=== PATIENT | male | born 1940 | race Caucasian/White ===

== ENCOUNTER → 2020-05-27 08:49 | Outpatient (CLI) | payer MEDICARE, OTHER, SELFPAY ==
[2020-05-27 10:54] LABS: COVID19 -Nasal RAPID Negative (Negative)
== END ==
PROVIDERS: Visit Provider Nurse Practitioner Family
DX: Z01.812 Encounter for preprocedural laboratory examination (principal); Z20.822 Contact with and (suspected) exposure to COVID-19
CPT/HCPCS: 87635

== ENCOUNTER 2020-05-28 09:58 | Inpatient (IN) | payer MEDICARE, OTHER, SELFPAY ==
[2020-05-25 10:42] VITALS: BMI 44.2
[2020-05-28] VITALS (12 sets, daily range): BP systolic 107–158; BP diastolic 70–89; PULSE 61–79; RESP 11–20; TEMP 35.9–36.9; O2SAT 93–99; BMI 44.2
--- NOTE | 2020-05-28 | DI.RAD.S_ITS ---
PROCEDURE: XR T AND L SPINE 2 TO 3 VIEWS INDICATIONS: T9-L1 tlift TECHNIQUE: 3 views acquired of the thoracolumbar spine. COMPARISON: None. FINDINGS: 3 spot fluoroscopic intraoperative views demonstrating partially visualized paraspinal christian and pedicle screw fixation. Dictated by: Bora Friedman M.D. on 05/28/2020 at 16:21 Approved by: Bora Friedman M.D. on 05/28/2020 at 16:23
[2020-05-28] MEDS: LACTATED RINGERS 1,000 ML 42 ML IV (11:02)
--- NOTE | 2020-05-28 11:15 | PM.PREOP ---
Pre-operative Note COVID-19 COVID-19 status: Negative Result date/Date tested (Pos, Neg/Pending): 05/27/20 Interval Note History & Physical reviewed/Exam performed by Physician: Yes Changes to H&P: No
--- NOTE | 2020-05-28 11:48 | PM.OP.1 ---
Operative Date/Time/Diagnoses Date of procedure: 05/28/20 Time of procedure: 15:50 Pre-op diagnosis: History lumbar fusion Lumbar stenosis with radiculopathy Morbid obesity Post-op diagnosis: same Procedure & Clinicians Procedure: T12-L1 revision laminectomy with microscope Removal of hardware from T12 T9-10, T10-11, T11-12, T12-L1 posterior fusion T9-L1 screws Iliac crest bone graft aspirate Placement of epidural catheter Same procedure as scheduled: Yes Indications: [age] year old male with intractable pain from stenosis. They had failed conservative management and requested operative intervention. Risks and benefits of surgery were discussed and appropriate consents were obtained. Surgeon: Blaze Cobb Rn Document Improvement Specialist: Ayleen Fraser Anesthesia Type: General Operative Notes Findings: None Closure Type: primary Specimen(s): none sent Prosthetic devices, grafts, tissues, transplants, or devices: NuVasive MAS Reline screws Applied: catheter Estimated Blood Loss (mL): 100 Procedure in detail: The patient was brought to the operating room and intubated on the table. A time-out was performed. They were then rolled over to the well-padded L[place]ll table in the prone position. Preoperative antibiotics were given. The back was prepped and draped in the standard sterile fashion. Using fluoroscopy, a 20 cm incision was made on the right from T9 through L2. We used Bovie to come down to and split the fascia and dissect down to his old hardware at L1 and L2. The Z rods and [place] connectors were identified. We unscrewed the set screws and removed the Z rods. The screws at L1 were also removed. Using fluoroscopy and neural monitoring, we then percutaneously placed Jamshidi needles down the right pedicles of T9, T10, T11, and T12. These were switched out to guidewires as well as placing a guidewire at L1. We then tapped and placed our screw shanks at T12 and L1. He had very large pedicles and we placed 6.5 mm diameter screws in the upper levels and upsized the L1 screw to a 7.5 diameter. We opened up the retractor. We dissected out over the posterolateral gutter as well as dissected medially with great care over his previous laminotomy. The bur was used to decorticate the transverse process of T12 as well as the fusion mass at L1. We brought in the microscope. A revision laminotomy was performed from the right at T12-L1. We used a curette to free up the dura from the edges of the bone and gradually dissected through the scar tissue until we could remove more of the hypertrophic facet. We cleared up above and below this with a curette and Kerrisons. We carefully dissected out to the opposite side and undermined this to decompress the remainder of the central canal. At the end we could sweep the ball probe cephalad caudally and across the other side and into the foramen, everything was open. The wound was irrigated. An epidural catheter was prepped with 4 mL of 0.5% Marcaine, 1 mg of Stadol, 100 mcg of fentanyl, and 4 mg of Duramorph. This was advanced 6 cm cephalad underneath the remaining lamina at T12. The retractor was then removed. We then placed the screw heads on top of the screw shanks at T12 and L1. We dissected medially to expose the posterolateral gutter and posterior lamina and decorticated this with the bur to prep for the fusion. A small stab incision was made over the PSIS. We used a Jamshidi needle to aspirate several mL of bone marrow from the pelvis. This was mixed with Osteocel and combined with all of the locally harvested bone graft and placed in the posterolateral gutter for the posterior fusion from T9 through L1. We tapped over the guidewires for the remaining levels then placed our screws at T9, T10, and T11. We measured and placed a christian and locked it down from T9 through L1. The muscle fascia was closed. The epidural catheter was then injected without resistance and the catheter was pulled. We then made a matching 20 cm incision on the left side. We used Bovie to split the fascia and came down to expose the L1 and L2 hardware. The set screws and then to the Z christian was removed. We then removed the L1 screw. We percutaneously placed Jamshidi needles down the T9 through T12 levels and change these out to guidewires. We placed a guidewire in the L1 hole. We tapped and placed our screws with 6.5 mm diameter from T9 through 12 and a 7.5mm diameter at L1. The christian was measured and placed down and moved the set screws were locked. Final x-rays were taken. The wounds were then irrigated. The fascia was closed. Vancomycin powder was placed in the wounds. The superficial and skin were closed. A sterile dressing was placed. The patient was then rolled over extubated and brought to recovery room without complications. Complications: none Post-operative Condition: stable Disposition: PACU Plan for aftercare: Inpatient. Up with physical therapy.
--- NOTE | 2020-05-28 13:09 | SUR.OPER ---
Prone on spine table, head in foam head support, padded chest and pelvic supports, gel pad at knees, lower legs supported by pillows; nipples, genitalia and toes free of pressure, arms secured on foam padded arm boards at <90 degrees abduction. Tape over blanket at thigh secured to table. Gel pads along large abdomen and between heels.
[2020-05-28] MEDS: CEFAZOLIN 2 GM/100 ML FROZ.PIGGY IV ×2 (13:14→20:49)
[2020-05-28] MEDS: THROMBIN (RECOMBINANT) 5,000 UNIT VIAL 5000 UNIT TOP (13:15)
[2020-05-28] MEDS: VANCOMYCIN 1,000 MG VIAL 1000 MG TOP (13:16)
[2020-05-28] MEDS: BUPIVACAINE 0.5% (PF) 4 ML, MORPHINE-PF 4 MG, BUTORPHANOL 1 MG, fentaNYL 100 MCG INJ (13:16)
[2020-05-28] MEDS: SODIUM CHLORIDE 0.9% 1,000 ML, GENTAMICIN 80 MG IRR ×2 (13:17→13:19)
--- NOTE | 2020-05-28 16:46 | SUR.PHASEI ---
Pt arrived to PACU with patent airway, awoke and denied pain despite being asked multiple times, turned to assess dressing x 2 remained c/d/i. Pt transported up to room 202 on 2/l n/c and left with Alexy in stable condition.
--- NOTE | 2020-05-28 16:50 | SUR.PHASEI ---
called, informed of room number.
[2020-05-28] MEDS: LACTATED RINGERS 1,000 ML 125 ML IV (19:06)
[2020-05-28] MEDS: diphenhydrAMINE 25 MG TABLET PO (19:59)
[2020-05-28] MEDS: METOPROLOL IR 25 MG TABLET PO (20:48)
[2020-05-28] MEDS: SENNOSIDES 8.6 MG TABLET 17.2 MG PO (20:49)
[2020-05-28] MEDS: GABAPENTIN 300 MG CAPSULE PO (20:49)
[2020-05-28] MEDS: PANTOPRAZOLE 20 MG TABLET PO (20:49)
[2020-05-28] MEDS: DOCUSATE 100 MG CAPSULE PO (20:49)
[2020-05-28] MEDS: ATORVASTATIN 20 MG TABLET PO (20:49)
[2020-05-28] MEDS: SOTALOL 80 MG TABLET PO (20:49)
[2020-05-28] MEDS: NYSTATIN/TRIAMCIN CREAM 15 GM 1 APPLIC TOP (20:52)
[2020-05-29 01:26] VITALS: BP 128/79; PULSE 88; RESP 16; TEMP 36.8; O2SAT 95
[2020-05-29] MEDS: LACTATED RINGERS 1,000 ML 125 ML IV ×2 (01:35→11:03)
[2020-05-29] MEDS: METOCLOPRAMIDE 10 MG/2 ML INJ IV (01:35)
[2020-05-29] MEDS: hydrOXYzine pamoate 25 MG CAPSULE PO (04:49)
[2020-05-29] MEDS: CEFAZOLIN 2 GM/100 ML FROZ.PIGGY IV (04:49)
[2020-05-29 05:01] VITALS: BP 132/88; PULSE 84; RESP 16; O2SAT 95
--- NOTE | 2020-05-29 05:03 | PC.NURSE ---
Addendum entered by Heide Raphael R.N. 05/29/20 05:12: pt is now resting in bed with CPAP on. Original Note: at begining of shift pt had nausea and some dry heaving, with little to no emesis, pt was given Reglan for nausea. pt was able to sleep most of the night and then complained of nausea again at about 0430. Pt was given Vistaril because it was too early for another dose of Reglan. pt preceded to cough off and on and produced about 50cc of clear emesis.
[2020-05-29 05:55] LABS: Hematocrit 42.2 % (41-53)
--- NOTE | 2020-05-29 07:49 | PM.PNPO.1 ---
Subjective Subjective Date Patient Seen: 05/29/20 Time Patient Seen: 07:50 Interval history: He is doing well. Minimal discomfort. Mostly having problems with nausea. It has been off and on overnight. Exam Vital Signs (past 8 hours): - 05/29/20 01:26 05/29/20 05:01 Temperature 98.2 F Pulse Rate 88 84 Respiratory Rate 16 16 Blood Pressure 128/79 132/88 Pulse Oximetry 95 95 Oxygen Delivery Method Room Air,CPAP Oxygen Flow Rate 0 Const Orientation: alert and oriented x3 Back/Spine/Pelvis Other: Mild drainage on the right side of the dressing. 5/5 motor both lower extremities except 4/5 right hip flexor, overall much improved since preop Objective Labs Result Diagrams: 05/29/20 05:45 Labs: Laboratory Results - last 24 hr 05/29/20 05:45 Hgb 14.0 Hct 42.2 PFSH Medical History (Updated 05/26/20 @ 15:32 by Minda Constantino, RN) Arthritis Atypical chest pain (~2014) AVNRT (AV ciro re-entry tachycardia) BPH (benign prostatic hyperplasia) Chronic anticoagulation Degenerative disc disease Elevated cholesterol Erectile dysfunction Former smoker GERD (gastroesophageal reflux disease) History of tachycardia Hyperlipidemia Hypertension Impairment of balance Lumbar post-laminectomy syndrome Lumbar strain Morbid obesity Obesity Obstructive sleep apnea on CPAP Paroxysmal A-fib Shortness of breath Sinus congestion Spinal stenosis SVT (supraventricular tachycardia) Surgical History (Updated 05/26/20 @ 15:36 by Minda Constantino, RN) H/O cardiac radiofrequency ablation H/O nasal septoplasty (~2012) H/O right knee surgery History of appendectomy History of laminectomy History of lumbar fusion History of total knee arthroplasty S/P epidural steroid injection S/P foot surgery, right Status post cataract extraction of both eyes with insertion of intraocular lens Social History household members: spouse Smoking Status: Former smoker alcohol intake: current Assessment & Plan Post-op Postoperative Procedures: Procedures Operation Date: 05/28/20 12:00 Actual Procedures Side Surgeon p Revision laminectomy T12-L1, instrumented fusion from T9-L1 w. removal of previous screw/christian Blaze Cobb MD He is doing well. Mobilize today with physical therapy. Anticipate discharge home in the next few days. Work on the nausea.
[2020-05-29 08:12] VITALS: BP 153/95; PULSE 79; RESP 26; TEMP 37.2; O2SAT 94
[2020-05-29] MEDS: METOPROLOL IR 25 MG TABLET PO (08:13)
[2020-05-29] MEDS: PANTOPRAZOLE 20 MG TABLET PO (08:13)
[2020-05-29] MEDS: DOCUSATE 100 MG CAPSULE PO (08:13)
[2020-05-29] MEDS: CELECOXIB 200 MG CAPSULE PO (08:13)
--- NOTE | 2020-05-29 08:14 | PC.NURSE ---
Addendum entered by Tsering Donaldson R.N. 05/29/20 15:03: Dressing changed, xeroform with gauze and tegaderm. Voided 125 in urinal. Patient denies pain. IV removed, patient tolerated. Education given regarding prescriptions, follow up appointment, pain and s/s of infection. Patient verbalized understanding. Patient dressed. Awaiting . Report given to oncoming RN. Addendum entered by Tsering Donaldson R.N. 05/29/20 14:00: Patient up to chair without complication. PT and OT have been in to work with patient. Patient denies pain or nausea at this time. Patient verbalizes he'd like to go home this evening if possible. Placed call to surgeons office, left message. Awaiting void. Addendum entered by Tsering Donaldson R.N. 05/29/20 11:39: Patient cleared by PT. Tucker removed, patient tolerated. Urinal bedside. Patient encouraged to drink fluids. is bedside at this time. Notation from earlier, patient refused morning Sotalol, was discontinued by PCP awhile ago. Original Note: Patient resting in bed. A/O x4. Reports nausea, no vomiting, intermittent cough noted. Zofran IV administered. IV fluids running, LR@125. Tucker patent, draining clear yellow urine. Patient denies pain. Denies numbness or tingling in extremities. Pulses equal. Back dsg intact, notable serosang drainage, sanguineous drainage on hip dressing. Patient up with walker, 2 p assist to chair for breakfast. Patient tolerated extremely well, denied dizziness, lightheadedness or SOB. Cpap at bedside for periods of rest. Call light in reach, patient verbalizes understanding to call before going back to bed.
--- NOTE | 2020-05-29 10:32 | PT.IIE ---
Current Diagnoses Morbid (severe) obesity due to excess calories (05/28/20) Obstructive sleep apnea (adult) (pediatric) (05/28/20) Spinal stenosis, lumbar region with neurogenic claudication (05/28/20) Postlaminectomy syndrome, not elsewhere classified (05/28/20) Nasal congestion (05/28/20) Strain of muscle, fascia and tendon of lower back, subsequent encounter (05/28/20) Dependence on other enabling machines and devices (05/28/20) Surgery Performed Operation Date: 05/28/20 12:00 Actual Procedures p Revision laminectomy T12-L1, instrumented fusion from T9-L1 w. removal of previous screw/christian - Blaze Cobb MD Surgical History (Last Updated 05/26/20 @ 15:36 by Minda Constantino, RN) H/O cardiac radiofrequency ablation H/O nasal septoplasty (~2012) H/O right knee surgery History of appendectomy History of laminectomy History of lumbar fusion History of total knee arthroplasty S/P epidural steroid injection S/P foot surgery, right Status post cataract extraction of both eyes with insertion of intraocular lens Medical History (Last Updated 05/26/20 @ 15:32 by Minda Constantino, RN) Arthritis Atypical chest pain (~2014) AVNRT (AV ciro re-entry tachycardia) BPH (benign prostatic hyperplasia) Chronic anticoagulation Degenerative disc disease Elevated cholesterol Erectile dysfunction Former smoker GERD (gastroesophageal reflux disease) History of tachycardia Hyperlipidemia Hypertension Impairment of balance Lumbar post-laminectomy syndrome Lumbar strain Morbid obesity Obesity Obstructive sleep apnea on CPAP Paroxysmal A-fib Shortness of breath Sinus congestion Spinal stenosis SVT (supraventricular tachycardia) Physical Therapy Inpatient Evaluation/Re-Eval M1 PT/OT-IP Prior Functional Status Start: 05/29/20 08:26 Freq: NEEDED Status: Active Protocol: Document 05/29/20 10:17 (Rec: 05/29/20 10:31 [id number]) Medical Review Prior Functional Status Medical History Reviewed Yes Diet/Fluid Consistency Regular Communication no deficits noted. able to make needs known Mobility and Gait independent for all mobility without AD. Has difficulty lifting his legs up to get in/ out of the car d/t thigh pain. Activities of Daily Living and IADL's independent for ADLs and IADLs without AD. able to drive. Prior Functional Level (Other details) had 2 back surgeries in 2009 and 2014 Social History Household Members spouse Living Arrangements House Number of Floors (Floors) One Floor Number of Stairs To Enter/Railing? no ANEL, 1 ANEL from garage entrance Home Environment High Toilet,Walk in Shower,Tub /Shower Home Equipment Front Wheel Walker,Straight Cane,Crutches Employment Status Retired Additional Social History Comment Pt lives with his in [facility]. is active and able to assist as needed. M2 PT-IP Current Condition Start: 05/29/20 08:26 Freq: NEEDED Status: Active Protocol: Document 05/29/20 10:17 (Rec: 05/29/20 10:31 [email or web address]) Physical Therapy Current Condition Current Condition Evaluation Date 05/29/20 Treatment Diagnosis Revision Laminectomy T12-L1, fusion from T9-L1 Onset Date 05/28/20 Precautions Lumbar Precautions Log Roll,No Twisting,Limit Bending,Lifting Restriction of 10 lbs,Gait Belt above Incisional Area Weight Bearing Status Weight Bearing Status Full Weight Bearing M3 PT-IP Subjective Start: 05/29/20 08:26 Freq: NEEDED Status: Active Protocol: Document 05/29/20 10:17 (Rec: 05/29/20 10:31 [email or web address]) Subjective Physical Therapy Visit Type Type Initial Evaluation Visit Start Time 09:05 Visit Stop Time 09:33 Total Visit Minutes 28 Number of CALENDER MACHINE OPERATOR Visits 0 Physical Therapy Visit Comments Patient Comments Im doing very good so far Patient Goals To be able to ride his motorcycle again. Therapy Pain Assessment Pain When Pain Assessed During Mobility Pain Present Pain Present Denied Pain M4 PT-IP Mobility and Gait Start: 05/29/20 08:26 Freq: NEEDED Status: Active Protocol: Document 05/29/20 10:17 (Rec: 05/29/20 10:31 [email or web address]) PT-Bed Mobility Assessment Rolling Type of Rolling Roll to Left Level of Assist Standby Assistance Supine to Sit Supine to Sit Minimal Assistance,Bedrails Sit to Supine Sit to Supine Standby Assistance,Bedrails Scooting Scooting to Edge of Bed Standby Assistance PT-Transfer Assessment Sit to and From Stand Sit to and from Stand Standby Assistance,Use of Upper Extremities Equipment Transfer Assistive Device Gait Belt,Front Wheeled Walker Orthotic/Prosthetic Devices or Brace: No Transfers Transfer Destination Bed,Chair Transfer Technique Stand Step Pivot Transfer Ability Level of Assist Standby Assistance,Use of Upper Extremities Comments Mobility Comments Pt was in chair upon PT arrival. Ax O x 4. BP 140/76 SpO2 92 %. Educated pt on postop precautions and he was able to recall all of them during the entire session. Pt initially stood up from bedside chair by pushing off from FWW. He then completed marching in place who stated he was not able to perform hip flexion before d/t pain. He then amb with FWW SBA in hallway for approx 120 ft. Pt appeared to be SOB easily d/t preexisted medical conditions. Pt took one 1 min standing break in the middle of the his walk. He then completed the 2nd half and returned to his room and sat at L EOB. Pt was able to get from sitting position to SL with assistance from L bed rail followed by log roll to center of the bed. He then completed log roll to his L side but needed min SENIOR DATABASE ADMINISTRATOR to pull him up back to seated position. He stood up after with FWW and transferred himself to bedside chair safely. He sat there comfrotably and denied discomfort besides SOB. BP at 157/78 SpO2 92%. Call light placed within reach. Gait Assessment Gait Gait Assistance Required: Standby Assistance Distance (Feet) 120 Able to Maintain Weight Bearing Status Yes During Gait Assistive Devices Assistive Device Gait Belt,Front Wheeled Walker Orthotic/Prosthetic Devices or Brace: No Gait Deviations General Gait Pattern Decreased Stride Length, Decreased Feet Clearance Factors Limiting Gait Function Factors Limiting Gait Function Decreased Activity Tolerance, Decreased Strength,Limited Range of Motion,Respiratory Distress Comments Gait Comments see mobility comments. Stair Climbing Assessment Comments Stair Climbing Comments no stairs PT-Balance Assessment Sitting Balance and Reactions Static Sitting Balance Ability Normal Dynamic Sitting Balance Ability Normal Standing Balance and Reactions Static Standing Balance Ability Normal Dynamic Standing Balance Ability Good Device Used FWW M5 PT-IP Objective Assessments Start: 05/29/20 08:26 Freq: NEEDED Status: Active Protocol: Document 05/29/20 10:17 (Rec: 05/29/20 10:31 [email or web address]) Orientation Orientation/Cognition Level of Alertness Alert Orientation Name,Age,Birthday,Month,Date, Year,Day of Week,Place, Situation Language Function Ability No Deficits Noted,Hard of Hearing Safety Awareness Understands Safety Issues Memory Description No Deficits Noted Gross Range of Motion Upper Extremity ROM Assessment Within Functional Limits Lower Extremity ROM Assessment Within Functional Limits Strength Upper Extremity Strength Assessment Within Functional Limits Lower Extremity Strength Assessment Within Functional Limits Hip 4+/5 Coordination Assessment Gross Coordination Gross Coordination WNL Sensation Assessment Sensation Gross Sensation WNL Comments Sensation Comments full sensation noted. no deficits. M6 PT-IP Treatment Start: 05/29/20 08:26 Freq: NEEDED Status: Active Protocol: Document 05/29/20 10:17 (Rec: 05/29/20 10:31 [email or web address]) Physical Therapy Treatment Education Education Provided Precautions,Weight Bearing Status,Post-Op Packet,Safety M7 PT-IP Assessment and Plan Start: 05/29/20 08:26 Freq: NEEDED Status: Active Protocol: Document 05/29/20 10:17 (Rec: 05/29/20 10:31 [email or web address]) PT Summary Assessment and Plan Potential Rehabilitation Potential Excellent Status of Condition at Evaluation Stable Summary Impairments Pain,ROM,Strength,Balance,Bed Mobility,Transfers,Gait, Activity Tolerance Progress Towards Goals Safe For Discharge Assessment Summary pt is a 79 yo male s/p POD1 Revision laminectomy T12-L1, instrumented fusion from T9-L1 w. removal of previous screw/ christian. PLOF= pt was independent for all mobility except with difficulty lifting his legs in /out of his truck d/t anterior thigh pain. CLOF= pt recovers very well and SBA with all mobility with FWW. He did need min SENIOR DATABASE ADMINISTRATOR for sidelying to sit but pt has a firmer bed at home with assistance as needed. Pt is safe to d/c home with assistance at this point. Frequency of Treatment Frequency Of Treatment Discharge Recommendations To Nursing Amount of Assist Needed Standby Assistance Discharge Recommendations PT Discharge Recommendations Home with Assistance Transportation Needs at Discharge Private Vehicle
[2020-05-29 10:53] VITALS: PULSE 75; RESP 16; O2SAT 95
--- NOTE | 2020-05-29 12:18 | OT.IP.EVAL ---
Current Diagnoses Morbid (severe) obesity due to excess calories (05/28/20) Obstructive sleep apnea (adult) (pediatric) (05/28/20) Spinal stenosis, lumbar region with neurogenic claudication (05/28/20) Postlaminectomy syndrome, not elsewhere classified (05/28/20) Nasal congestion (05/28/20) Strain of muscle, fascia and tendon of lower back, subsequent encounter (05/28/20) Dependence on other enabling machines and devices (05/28/20) Surgery Performed Operation Date: 05/28/20 12:00 Actual Procedures p Revision laminectomy T12-L1, instrumented fusion from T9-L1 w. removal of previous screw/christian - Blaze Cobb MD Past Medical History (Last Updated 05/26/20 @ 15:32 by Minda Constantino, RN) Arthritis Atypical chest pain (~2014) AVNRT (AV ciro re-entry tachycardia) BPH (benign prostatic hyperplasia) Chronic anticoagulation Degenerative disc disease Elevated cholesterol Erectile dysfunction Former smoker GERD (gastroesophageal reflux disease) History of tachycardia Hyperlipidemia Hypertension Impairment of balance Lumbar post-laminectomy syndrome Lumbar strain Morbid obesity Obesity Obstructive sleep apnea on CPAP Paroxysmal A-fib Shortness of breath Sinus congestion Spinal stenosis SVT (supraventricular tachycardia) Surgical History (Last Updated 05/26/20 @ 15:36 by Minda Constantino, RN) H/O cardiac radiofrequency ablation H/O nasal septoplasty (~2012) H/O right knee surgery History of appendectomy History of laminectomy History of lumbar fusion History of total knee arthroplasty S/P epidural steroid injection S/P foot surgery, right Status post cataract extraction of both eyes with insertion of intraocular lens Occupational Therapy Inpatient Evaluation/Re-Eval M1 PT/OT-IP Prior Functional Status Start: 05/29/20 08:26 Freq: NEEDED Status: Active Protocol: Document 05/29/20 15:04 CGR (Rec: 05/29/20 15:21 CGR [id number]) Medical Review Prior Functional Status Medical History Reviewed Yes Diet/Fluid Consistency Regular Communication no deficits noted. able to make needs known Mobility and Gait independent for all mobility without AD. Has difficulty lifting his legs up to get in/ out of the car d/t thigh pain. Activities of Daily Living and IADL's independent for ADLs and IADLs without AD. able to drive. Prior Functional Level (Other details) had 2 back surgeries in 2009 and 2014 Social History Household Members spouse Living Arrangements House Number of Floors (Floors) One Floor Number of Stairs To Enter/Railing? 1 step to enter from the garage, pt has no steps from the front door Home Environment High Toilet,Walk in Shower,Tub /Shower Home Equipment Front Wheel Walker,Straight Cane,Grab Bars In Shower Employment Status Retired M2 OT-IP Current Condition Start: 05/29/20 15:03 Freq: Status: Active Protocol: Document 05/29/20 15:04 CGR (Rec: 05/29/20 15:21 CGR [id number]) Occupational Therapy Current Condition Current Condition Evaluation Date 05/29/20 Treatment Diagnosis T9-L1 Lami and fusion Diagnosis Onset Date 05/28/20 Post Operative Precautions Lumbar Precautions Log Roll,No Twisting,Limit Bending,Lifting Restriction of 10 lbs,Gait Belt above Incisional Area M3 OT- IP Subjective and Pain Start: 05/29/20 15:03 Freq: Status: Active Protocol: Document 05/29/20 15:04 CGR (Rec: 05/29/20 15:21 CGR [id number]) OT- Subjective Occupational Therapy Visit Type Type Initial Evaluation Visit Start Time 11:43 Visit Stop Time 12:18 Total Visit Minutes 35 Notes Pt's present throughout session. OT Pain Assessment Pain When Pain Assessed At Rest Pain Present Pain Present Denied Pain M4 OT- IP ADL's Start: 05/29/20 15:03 Freq: Status: Active Protocol: Document 05/29/20 15:04 CGR (Rec: 05/29/20 15:21 CGR [id number]) OT FZM-Naiz-Ueacvag General Evaluation Self-Feeding Ability Independent OT ADL-Grooming General Evaluation Grooming Ability Independent Areas Needing Assistance Face Washing Comments OT Grooming Comments standing at sink OT ADL-Oral Care General Eval Oral Care Ability Independent Areas of Assistance Brushing Teeth Comments Oral Care Comments standing at sink OT ADL-Dressing Comments OT Dressing Comments Not performed but pt states the he used a sock aide and vegetable preparer for dressing at baseline from past sx. OT ADL-Toileting General Evaluation Toileting Ability Independent OT ADL-Bathing Comments OT Bathing Comments not performed M5 OT- IP IADL's Start: 05/29/20 15:03 Freq: Status: Active Protocol: Document 05/29/20 15:04 CGR (Rec: 05/29/20 15:21 R [id number]) OT-Instrumental Activities of Daily Living Deficits IADL Deficits Identified No Deficits Home Safety Awareness Awareness of Need for Assistance at Home Good Awareness Ability to Problem Solve Emergency Able to Problem Solve Situations Medication Management Medication Management No Deficits Identified Money Management Money Management No Deficits Identified Meal Preparation Meal Preparation No Deficits Identified Adjunct Professor Of Voice Adjunct Professor Of Voice No Deficits Identified Driving Driving Caregiver Provides Assist M6 OT- IP Functional Cognition Start: 05/29/20 15:03 Freq: Status: Active Protocol: Document 05/29/20 15:04 CGR (Rec: 05/29/20 15:21 R [id number]) Cognitive Factors Limiting Selfcare Function Cognitive Ability Level of Alertness Alert Patient Orientation Name,Age,Birthday,Month,Date, Year,Day of Week,Place, Situation Attention Span Ability Capable of Focused Attention, Capable of Sustained Attention Ability to Follow Commands Able to Follow Multi-Step Commands Memory Description No Deficits Noted Safety Awareness No Deficits Noted Problem Solving Ability No deficits Noted OT- Vision and Hearing OT- Hearing Assessment OT- Hearing Assessment Hearing Impaired OT- Vision Assessment Visual Acuity Glasses For Reading Visual Attentiveness WFL Occular Pursuits WFL Visual Convergence WFL M7 OT- IP Mobility and Balance Start: 05/29/20 15:03 Freq: Status: Active Protocol: Document 05/29/20 15:04 CGR (Rec: 05/29/20 15:21 R [id number]) OT-Transfer Assessment Sit to and From Stand Sit to and from Stand Standby Assistance Transfers Transfer Ability Standby Assistance Technique Transfer Destination Chair,Toilet Transfer Technique Stand Step Pivot Devices Transfer Assistive Devices Gait Belt,Front Wheeled Walker Comments Mobility Comments mobility started with 2WW but finished without walker. OT- Gait Assessment Gait Gait Assistance Required: Standby Assistance Assistive Devices Assistive Device Gait Belt OT- Balance Assessment Sitting Balance and Reactions Static Sitting Balance Ability Normal Dynamic Sitting Balance Ability Good M8 OT- IP Objective Assessments Start: 05/29/20 15:03 Freq: Status: Active Protocol: Document 05/29/20 15:04 CGR (Rec: 05/29/20 15:21 R [id number]) OT Gross Range of Motion Upper Extremity Range of Motion Assessment Within Functional Limits OT Strength Upper Extremity Strength Assessment Within Functional Limits OT- Coordination Assessment Upper Extremity Finger to Nose Test Within Functional Limits Finger Tapping Test Within Functional Limits OT-Muscle Tone Assessment Muscle Tone WNL Yes OT Sensation Assessment Edema Edema Absent M9 OT- IP Assessment and Plan Start: 05/29/20 15:03 Freq: Status: Active Protocol: Document 05/29/20 15:04 CGR (Rec: 05/29/20 15:21 CGR [id number]) OT Summary Assessment and Plan Potential Rehabilitation Potential Excellent Analytic Complexity at Evaluation Low Summary OT Impairments Functional Mobility,Activity Tolerance Progress Towards Goals Safe For Discharge,Goals Met Assessment Summary Pt is at or close to his baseline s/p T9-L1 lami and fusion. No further OT needs at this time. Frequency of Treatment Frequency Of Treatment Discharge Discharge Recommendations OT Discharge Recommendations Home with Assistance Transportation Needs at Discharge Private Vehicle
[2020-05-29 13:23] VITALS: BP 136/74; PULSE 79; RESP 26; O2SAT 94
--- NOTE | 2020-05-29 13:32 | CM.DANOTE ---
Discharge Planning/Care Management DCP: assessment: Case received, EMR reviewed. Pt is a 79 year old male who admitted 05/28 for a scheduled spinal surgery. Surgeon: Dr. Cobb. Payer : Medicare and [employer]. Admission status: INPT: confirmed by UR RN Deejay. Pt has history of prior spinal surgeries. Dr. Cobb states pt is expected to need a few day in the hospital as the surgery was made more complex by pt's morbid obesity (330 lbs) . PT has worked with pt today. OT is pending. Will be checking in with pt and follow for d/c issues and options as need is identified. CM Discharge Assessment Start: 05/29/20 13:30 Freq: Status: Active Protocol: Document 05/29/20 13:31 ITV (Rec: 05/29/20 13:32 IT [id number]) Discharge Planning Assessment Advance Directives? No History Provided By Medical Record Has Patient been admitted in last 30 No days? Prior Living Arrangements House Household Members spouse Type of transportation used prior to Drives own vehicle admit Independent with ADL's Yes Is patient alert and oriented? Yes DME Already Rented / Owned FWW / Walker,Cane,Crutches Review Status In Process Pre-Anesthesia Assessment Start: 05/25/20 10:42 Freq: Status: Complete Protocol: Document 05/25/20 10:42 [facility] (Rec: 05/25/20 11:23 [facility] [id number]) Pre-Anesthesia Assessment Preferred Name [employer] Patient Information Reviewed Via Chart Review,Phone Assessment Assessment Completed With Patient H&P Completed Within 30 Days Yes Diagnostic Results BMP/CMP,CBC,EKG,Other Comment A1c,covid Primary Care Provider Lotus Rajan Medical Clearance Received Yes Seen Specialist in Last 12 Months Yes Specialist Seen Rocket Motor Tester,Orthopedist Comment Shakeel Primary Language Slovak Federal Java Developer Required No Height 184.15 cm Weight 150.139 kg Body Mass Index (BMI) 44.2 Hearing Ability Use of Hearing Aid Visual Impairment No Limitations Dentition Type Teeth, Natural Present Barriers to Learning Auditory,Visual Other Aids No Hx Anesthesia Reactions No Hx Family Anesthesia Reaction No Hx Malignant Hyperthermia No Hx Blood Transfusions No Hx Blood Transfusion Reaction No Anesthesia Review Requested No Coffee Break Attendant No alcohol intake current alcohol intake frequency 0-2 drinks per day Smoking Status Former smoker Tobacco type cigarettes,pipe,cigars Has it been 2 weeks or less since No patient quit smoking how long ago did patient quit smoking 1980s Substance Use Type does not use Pain Present Pain Reported Comment back and leg pain Musculoskeletal Symptoms Back Pain,Muscle Weakness, Numbness,Radiating Pain into Limb History of Falling (Recent or History of No ) Patient is completely paralyzed or No completely immobile Ambulatory Aid None/bed rest/nurse assist Gait/Transferring Normal/bedrest/immobile,Weak Mental Status Oriented to own ability Comment limited walking, hunched over Is patient on oxygen? No Does patient have CHOW/SOB Yes Hx Sleep Apnea Yes CPAP/BIPAP use prescribed and used routinely Will Bring CPAP/BIPAP DOS Yes Currently Taking a Beta Andrew No Can You Climb a Flight of Stairs Without No SOB Hx Chest Pain No Hx SOB Yes Hx Syncope or Dizziness No Anti-Coagulant Therapy Yes: Yuliana Has a Rocket Motor Tester Yes: Shakeel Cardiac Testing Yes: Zio 08/11, Echo 07/11, Albation 10/11, Hx Pacemaker/ICD No Cardiac Clearance Received Not Applicable Comment EF 65% Diet Type At Home Regular dysphagia No Urinary Catheter Present No Hx Urinary Self Catheterization No Diabetes No Hx Drug Resistant Organism No Presence of External or Internal Medical Yes: Antoni IOLs, R TKA, back Devices Have you had any close contact with No someone diagnosed with COVID-19? Are you experiencing any of these Weakness symptoms? Evaluation/Screening for possible COVID- Yes 19 infection completed? Comment Weakness @ baseline Marital Status Lives With spouse Prior Living Arrangements House Number of Floors (Floors) One Floor Number of Stairs To Enter/Railing? no stairs Support System Spouse Does the Patient Have Assistance After Yes Surgery Patient Discharge Plan Description Return Home Feels Safe in Current Environment Yes Been Physically Hurt or Threatened By a No Person in Current Environment Do you have thoughts of harming yourself None or others? Are you currently considering suicide? No Do you have a plan to hurt yourself or No Plan others? Do You Have Any Spiritual Beliefs That No May Affect Your HC Choices? Do You Have Any Cultural Practices That No May Affect Your HC Choices? Who Can We Speak to About Patient's Care Friends & Family Identifying Code for Release of Patient Declined Information Health Care Proxy/Next of Kin Samantha Cade Health Care Proxy Emergency Contact Name - America Cade Emergency Contact Advance Directives? No Power of Mill Representative No PAC Instructions Assistance for 24 hours post- op,Bring CPAP/BIPAP,Do not shave/clip surgical site, Durable medical equipment, Medications to take/avoid, Nasal antibiotic,No ETOH/ petroleum product on skin DOS, NPO,Post-op transportation,Pre -op antibiotic,Pre-surgical wash,Sensory aids,Sturdy shoes /comfortable clothes,Do not bring valuables and remove jewelry
== END 2020-05-29 15:31 | disposition home or self-care (01) | DRG 460 ==
PROVIDERS: Admitting Provider Orthopaedic Surgery; Referring Provider Orthopaedic Surgery; Visit Provider Orthopaedic Surgery
PROC: 0RG7071 Fusion of 2 to 7 Thoracic Vertebral Joints with Autologous Tissue Substitute, Posterior Approach, Posterior Column, Open Approach (ICD-10-PCS; principal; 2020-05-28 12:00)
DX: M48.062 Spinal stenosis, lumbar region with neurogenic claudication (principal); Z68.41 Body mass index [BMI] 40.0-44.9, adult; M96.1 Postlaminectomy syndrome, not elsewhere classified; E66.01 Morbid (severe) obesity due to excess calories; I10 Essential (primary) hypertension; E78.5 Hyperlipidemia, unspecified; K21.9 Gastro-esophageal reflux disease without esophagitis; G47.33 Obstructive sleep apnea (adult) (pediatric); I48.0 Paroxysmal atrial fibrillation; Z79.01 Long term (current) use of anticoagulants; Z87.891 Personal history of nicotine dependence; Z20.822 Contact with and (suspected) exposure to COVID-19
CPT/HCPCS: 36415; 72082; 76000; 82962; 85014; 85018; 87635; 94760; 97161; 97165; 97535; C1776; C9803; J0595; J0690; J1100; J2250; J2274; J2405; J2704; J2765; J3010

== ENCOUNTER 2022-04-13 21:06 | Inpatient (IN) | payer MEDICARE, OTHER, SELFPAY ==
[2020-05-28 16:46] VITALS: BMI 44.2
[2022-04-13] VITALS (8 sets, daily range): BP systolic 118–154; BP diastolic 58–81; PULSE 85–97; RESP 20–26; TEMP 35.8; O2SAT 92–100; BMI 43.6
--- NOTE | 2022-04-13 21:14 | DI.RAD.S_ITS ---
PROCEDURE: XR CHEST 1V INDICATIONS: chest pain TECHNIQUE: One view of the chest was acquired. COMPARISON: None. FINDINGS: Surgical changes and devices: None. Lungs and pleura: Evaluation is limited by lordotic projection. There are low lung volumes with bibasilar medial opacities consistent with consolidation or atelectasis. The lateral costophrenic angles are indistinct suggestive of small pleural effusions. Mediastinum: Heart size appears enlarged. Bones and chest wall: No suspicious bony lesions. Overlying soft tissues appear unremarkable. IMPRESSION: 1. Limited study due to lordotic projection and low lung volumes. 2. Medial bibasilar atelectasis or consolidation. 3. Suspected small pleural effusions. Dictated by: Deejay Diaz M.D. on 04/13/2022 at 22:27 Approved by: Deejay Diaz M.D. on 04/13/2022 at 22:31
[2022-04-13 21:32] LABS: INR 1.8 (0.9-1.3); Prothrombin Time 20.7 SECONDS (10.1-12.7)
[2022-04-13 21:34] LABS: PTT Partial Thromboplastin Tim 36 SECONDS (26-36)
[2022-04-13 21:36] LABS: Add Manual Diff / Slide Review NO; Basophils Absolute Auto 100 /uL (0-100); Basophils Percent Auto 0.8 % (0-2); Eosinophils Absolute Auto 100 /uL (0-450); Eosinophils Percent Auto 0.8 % (2-4); Hematocrit 38.4 % (41-53); Hemoglobin 12.7 g/dL (13.5-17.5); Lymphocytes Absolute Auto 1800 /uL (1100-4500); Lymphocytes Percent Auto 15.6 % (25-40); Mean Corpuscular Hemoglobin 29.4 PG (26-34); Mean Corpuscular Volume 89.1 fL (80-100); Monocytes Absolute Auto 600 /uL (0-900); Monocytes Percent Auto 4.9 % (3-14); Neutrophils Absolute Auto 9000 /uL (1500-7000); Neutrophils Percent Auto 77.9 % (50-75); Platelet Count 366 X10^3/uL (150-400); Red Blood Cell Count 4.31 X10^6/uL (4.5-5.9); Red Cell Distribution Width 14.8 % (11.6-14.8); White Blood Cell Count 11.6 X10^3/uL (4.5-11.0)
[2022-04-13 21:37] LABS: Alanine Aminotransferase 69 IU/L (<50); Albumin 3.3 g/dL (3.5-5.0); Alkaline Phosphatase 276 U/L (38-126); Aspartate Aminotransferase 147 IU/L (17-59); BUN Creatinine Ratio 10.9 (6-22); Bilirubin Total 0.6 mg/dL (0.2-1.3); Blood Urea Nitrogen 15 mg/dL (9-20); Calcium 8.6 mg/dL (8.4-10.2); Carbon Dioxide 29 mmol/L (22-32); Chloride 100 mmol/L (98-107); Creatine Kinase 25 U/L (55-170); Estimated Glomerular Filt Rate 51 mL/min (>60); Globulin 3.3 g/dL (1.7-4.1); Glucose 157 mg/dL (80-110); HEMOLYSIS < 15 (0-50); Magnesium 1.8 mg/dL (1.6-2.3); Potassium 4.2 mmol/L (3.4-5.1); Sodium 138 mmol/L (137-145); Total Protein 6.6 g/dL (6.3-8.2)
[2022-04-13 21:42] LABS: COVID19 -Nasal RAPID Negative (Negative)
--- NOTE | 2022-04-13 21:43 | ED.CHESTPAIN ---
HPI - Chest Pain General Chief Complaint: Chest Pain Stated Complaint: SOB/ABD. PAIN Time Seen by Provider: 04/13/22 21:37 Source: patient Mode of arrival: Ambulatory Limitations: no limitations History of Present Illness HPI narrative: Patient is an 81-year-old male who is here for evaluation of several hours of acute sudden onset of epigastric abdominal discomfort associated with nausea and vomiting and some shortness of breath. He states the beginning of the month he was seen at outside facility where he was evaluated for gallbladder pathology. He was told that he needed to have his gallbladder removed. He is waiting for insurance/referrals to go through in order to see General surgery. This evening he was eating ice cream. He would a sudden onset of the same pain that he had earlier this month. Has also had vomiting. No diarrhea. No chest pain. No urinary symptoms. Had his appendix out back in the early 60s otherwise no other abdominal pathology. 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 Related Data Home Medications Medication Instructions Recorded Confirmed atorvastatin 20 mg tablet 20 mg PO BEDTIME 05/25/20 05/25/20 meloxicam 15 mg tablet 15 mg PO DAILY PRN Pain 05/25/20 05/25/20 metoprolol tartrate 25 mg tablet 25 mg PO BID 05/25/20 05/25/20 omeprazole 20 mg tablet,delayed 20 mg PO BID 05/25/20 05/25/20 release rivaroxaban 20 mg tablet (Xarelto) 20 mg PO QPM 05/25/20 05/25/20 losartan 05/26/20 magnesium 200 mg tablet 05/26/20 nystatin-triamcinolone 100,000 1 applic topical BID 05/26/20 05/26/20 unit/gram-0.1 % topical ointment sotalol 80 mg tablet 80 mg PO BID 05/26/20 05/26/20 Previous Rx's Medication Instructions Recorded bisacodyl 10 mg rectal suppository [address] PRN PRN Constipation #5 ea 05/29/20 docusate sodium 100 mg capsule 100 mg PO BID PRN constipation #40 05/29/20 (DOK) caps hydrocodone 5 mg-acetaminophen 325 1 tab PO Q4HR PRN Pain, Moderate 05/29/20 mg tablet (4-6) #20 tabs Allergies Allergy/AdvReac Type Severity Reaction Status Date / Time tramadol Allergy Unknown Doesn't Verified 04/13/22 21:11 recall dronedarone AdvReac Mild Diarrhea Verified 04/13/22 21:11 Review of Systems Constitutional Constitutional: Reports system reviewed and no additional complaints, except as documented ENT Ears, Nose, Mouth, and Throat: Reports system reviewed and no additional complaints, except as documented Cardiovascular Cardiovascular: Reports system reviewed and no additional complaints, except as documented Respiratory Respiratory: Reports system reviewed and no additional complaints, except as documented Gastrointestinal Gastrointestinal: Reports system reviewed and no additional complaints, except as documented Integumentary/Breasts Skin/Breast: Reports system reviewed and no additional complaints, except as documented Hematologic/Lymphatic On Anticoagulants: No Patient History Medical History Anticoagulated Arthritis Atypical chest pain (~2014) AVNRT (AV ciro re-entry tachycardia) BPH (benign prostatic hyperplasia) Chronic anticoagulation Degenerative disc disease Elevated cholesterol Erectile dysfunction Former smoker Gallstone pancreatitis GERD (gastroesophageal reflux disease) History of tachycardia Hyperlipidemia Hypertension Impairment of balance Lumbar post-laminectomy syndrome Lumbar strain Morbid obesity Obesity Obstructive sleep apnea on CPAP Paroxysmal A-fib Shortness of breath Sinus congestion Spinal stenosis SVT (supraventricular tachycardia) Surgical History (Updated 05/26/20 @ 15:36 by Minda Constantino RN) H/O cardiac radiofrequency ablation H/O nasal septoplasty (~2012) H/O right knee surgery History of appendectomy History of laminectomy History of lumbar fusion History of total knee arthroplasty S/P epidural steroid injection S/P foot surgery, right Status post cataract extraction of both eyes with insertion of intraocular lens Social History household members: spouse Smoking Status: Former smoker alcohol intake: current Smoking Status: Former smoker alcohol intake frequency: 0-2 drinks per day Substance Use Type: does not use Exam Initial Vital Signs Initial Vital Signs: Vital Signs Temperature 96.4 F L 04/13/22 21:11 Pulse Rate 97 H 04/13/22 21:11 Respiratory Rate 20 04/13/22 21:11 Blood Pressure 118/58 L 04/13/22 21:11 Pulse Oximetry 100 04/13/22 21:11 Oxygen Delivery Method 04/13/22 21:11 HENMT Head: normal to inspection and normocephalic Resp Effort & Inspection: normal respiratory effort Auscultation: clear to auscultation bilaterally Cardio Rate: regular rate Rhythm: regular rhythm GI Inspection: normal to inspection Palpation: soft, No firm and tender Skin General: no rashes or lesions noted Neuro General: patient alert, patient awake and moves all extremities Speech: speech normal Extrem General: normal to inspection and capillary refill normal Psych Appearance: grossly normal and well kempt Course Orders Ordered: ED Orders 04/13/22 21:14 XR chest 1V Stat EKG-12 Lead Stat 04/13/22 21:16 BNP [NT-proBNP (BNP-Adult 18+)] Stat COVID19 -Nasal RAPID/Pre-Proc Stat Complete Blood Count AUTO DIFF Stat Comprehensive Metabolic Panel Stat Lipase Stat Magnesium Stat Partial Thromboplastin Time Stat Prothrombin Time INR Stat Troponin & CK Cardiac Panel Stat 04/13/22 21:44 US abdomen limited Stat 04/14/22 00:22 Consult to General Surgery Stat Sodium Chloride (Normal Saline 0.9%) 1,000 mls @ 150 mls/hr IV CONT RAUL Discontinued Medications Piperacillin Sod/Tazobactam (Sod 4.5 gm/ Sodium Chloride) 100 mls @ 200 mls/hr IV NOW ONE Stop: 04/14/22 00:32 Ketorolac Tromethamine (Ketorolac 30 Mg/Ml Vial) 30 mg IV NOW ONE Stop: 04/13/22 22:00 Last Admin: 04/13/22 22:14 Dose: 30 mg Documented By: COSMO Morphine Sulfate (Morphine 4 Mg/Ml Inj) 4 mg IV NOW ONE Stop: 04/13/22 21:44 Last Admin: 04/13/22 21:50 Dose: 4 mg Documented By: DEJAN Ondansetron HCl (Ondansetron 4 Mg/2 Ml Inj) 4 mg IV NOW ONE Stop: 04/13/22 21:44 Last Admin: 04/13/22 21:48 Dose: 4 mg Documented By: DEJAN Vital Signs Vital signs: Vital Signs - 8 hr 04/13/22 21:11 04/13/22 22:21 04/13/22 22:22 Temperature 96.4 F L Pulse Rate 97 H 88 85 Respiratory Rate 20 24 22 Blood Pressure 118/58 L Pulse Oximetry 100 98 95 Oxygen Delivery Method Room Air 04/13/22 22:22 04/13/22 22:30 04/13/22 22:30 Temperature Pulse Rate 88 Respiratory Rate 23 Blood Pressure 154/81 H 124/60 Pulse Oximetry 96 Oxygen Delivery Method 04/13/22 23:00 04/13/22 23:00 04/13/22 23:18 Temperature Pulse Rate 96 H Respiratory Rate 26 H Blood Pressure 154/70 H 142/72 H Pulse Oximetry 92 Oxygen Delivery Method 04/13/22 23:18 04/13/22 23:29 04/13/22 23:30 Temperature Pulse Rate 93 H 93 H Respiratory Rate 25 H 25 H Blood Pressure 138/70 Pulse Oximetry 98 93 Oxygen Delivery Method MDM - Chest Pain Lab Data Result diagrams: 04/13/22 21:16 04/13/22 21:16 Labs: Lab Results 04/13/22 04/13/22 04/13/22 Range/Units 21:16 21:16 21:16 WBC 11.6 H (4.5-11.0) X10^3/uL RBC 4.31 L (4.5-5.9) X10^6/uL Hgb 12.7 L (13.5-17.5) g/dL Hct 38.4 L (41-53) % MCV 89.1 (80-100) fL MCH 29.4 (26-34) PG MCHC 33.0 (30-36) % RDW 14.8 (11.6-14.8) % Plt Count 366 (150-400) X10^3/uL Neut % (Auto) 77.9 H (50-75) % Lymph % (Auto) 15.6 L (25-40) % [place] % (Auto) 4.9 (3-14) % Eos % (Auto) 0.8 L (2-4) % Baso % (Auto) 0.8 (0-2) % Neut # (Auto) 9000 H (7495-4483) /uL Lymph # (Auto) 1800 (8352-2659) /uL [place] # (Auto) 600 (0-900) /uL Eos # (Auto) 100 (0-450) /uL Baso # (Auto) 100 (0-100) /uL PT 20.7 H (10.1-12.7) SECONDS INR 1.8 H (0.9-1.3) APTT 36 (26-36) SECONDS Sodium 138 (137-145) mmol/L Potassium 4.2 (3.4-5.1) mmol/L Chloride 100 (98-107) mmol/L Carbon Dioxide 29 (22-32) mmol/L BUN 15 (9-20) mg/dL Creatinine 1.38 H (0.66-1.25) mg/dL Estimated GFR 51 L (>60) mL/min BUN/Creatinine Ratio 10.9 (6-22) Glucose 157 H (80-110) mg/dL Calcium 8.6 (8.4-10.2) mg/dL Magnesium 1.8 (1.6-2.3) mg/dL Total Bilirubin 0.6 (0.2-1.3) mg/dL AST 147 H (17-59) IU/L ALT 69 H (<50) IU/L Alkaline Phosphatase 276 H (38-126) U/L Total Creatine Kinase 25 L (55-170) U/L CK-MB (CK-2) TNP CK-MB (CK-2) Rel Index TNP Troponin I < 0.012 (0.01-0.034) ng/mL NT-Pro-B Natriuret Pep (<450) pg/mL Total Protein 6.6 (6.3-8.2) g/dL Albumin 3.3 L (3.5-5.0) g/dL Globulin 3.3 (1.7-4.1) g/dL Albumin/Globulin Ratio 1.0 (1.0-2.8) Lipase 52838 H (23-300) U/L SARS-CoV-2 (PCR) (Negative) 04/13/22 04/13/22 Range/Units 21:16 21:16 WBC (4.5-11.0) X10^3/uL RBC (4.5-5.9) X10^6/uL Hgb (13.5-17.5) g/dL Hct (41-53) % MCV (80-100) fL MCH (26-34) PG MCHC (30-36) % RDW (11.6-14.8) % Plt Count (150-400) X10^3/uL Neut % (Auto) (50-75) % Lymph % (Auto) (25-40) % [place] % (Auto) (3-14) % Eos % (Auto) (2-4) % Baso % (Auto) (0-2) % Neut # (Auto) (8939-8759) /uL Lymph # (Auto) (9969-7881) /uL [place] # (Auto) (0-900) /uL Eos # (Auto) (0-450) /uL Baso # (Auto) (0-100) /uL PT (10.1-12.7) SECONDS INR (0.9-1.3) APTT (26-36) SECONDS Sodium (137-145) mmol/L Potassium (3.4-5.1) mmol/L Chloride (98-107) mmol/L Carbon Dioxide (22-32) mmol/L BUN (9-20) mg/dL Creatinine (0.66-1.25) mg/dL Estimated GFR (>60) mL/min BUN/Creatinine Ratio (6-22) Glucose (80-110) mg/dL Calcium (8.4-10.2) mg/dL Magnesium (1.6-2.3) mg/dL Total Bilirubin (0.2-1.3) mg/dL AST (17-59) IU/L ALT (<50) IU/L Alkaline Phosphatase (38-126) U/L Total Creatine Kinase (55-170) U/L CK-MB (CK-2) CK-MB (CK-2) Rel Index Troponin I (0.01-0.034) ng/mL NT-Pro-B Natriuret Pep 70 (<450) pg/mL Total Protein (6.3-8.2) g/dL Albumin (3.5-5.0) g/dL Globulin (1.7-4.1) g/dL Albumin/Globulin Ratio (1.0-2.8) Lipase (23-300) U/L SARS-CoV-2 (PCR) Negative (Negative) Imaging Data Chest x-ray: Radiologist's Impression: [address] [address] XRay Report Signed Patient: Sony Cade MR#: [id number] : 1940 Acct:[id number] Age/Sex: 81 / M Date of Service: 04/13/22 Loc: ED Accession Number: [id number] ?? Procedure: XR chest 1V Ordering Provider: Margarito Falcon D.O. PROCEDURE:? XR CHEST 1V ? INDICATIONS:? chest pain ? TECHNIQUE:? One view of the chest was acquired.? ? COMPARISON:? None. ? FINDINGS:? ? Surgical changes and devices:? None.? ? Lungs and pleura:? Evaluation is limited by lordotic projection.? There are low lung volumes with bibasilar medial opacities consistent with consolidation or atelectasis.? The lateral costophrenic angles are indistinct suggestive of small pleural effusions.? ? Mediastinum:? Heart size appears enlarged. ? Bones and chest wall:? No suspicious bony lesions.? Overlying soft tissues appear unremarkable.? ? IMPRESSION:? ? 1. Limited study due to lordotic projection and low lung volumes. ? 2. Medial bibasilar atelectasis or consolidation. ? 3. Suspected small pleural effusions. ? ? Dictated by: Deejay Diaz M.D. on 04/13/2022 at 22:27 ? ? Approved by: Deejay Diaz M.D. on 04/13/2022 at 22:31?? US - abdomen: Radiologist's Impression: [place] [address] Ultrasound Report Signed Patient: Sony Cade MR#: [id number] : 1940 Acct:[id number] Age/Sex: 81 / M Date of Service: 04/13/22 Loc: ED Accession Number: [id number] ?? Procedure: US abdomen limited Ordering Provider: Margarito Falcon D.O. PROCEDURE: US ABDOMEN LIMITED ? INDICATIONS:? RUQ US eval for GB pathology ? TECHNIQUE:? Real-time focused scanning was performed of the abdomen, with image documentation.? ? COMPARISON:? None. ? FINDINGS:? ? Evaluation limited by body habitus. ? The liver was not well visualized and is incompletely evaluated. ? Gallbladder is distended with heterogeneous internal contents consistent with complex fluid or a soft tissue mass.? There is no internal vascularity on color Doppler interrogation.? No pericholecystic fluid or reported sonographic Isidro's sign. ? Intra and extrahepatic biliary ducts not well visualized due to body habitus and bowel gas. ? Pancreas also not well visualized. ? IMPRESSION:? ? 1. Distention of the gallbladder with heterogeneous filling defects consistent with complex fluid or soft tissue mass.? Recommend further evaluation with a contrast enhanced MRI when clinically feasible. ? ? Dictated by: Deejay Diaz M.D. on 04/13/2022 at 23:38 ? ? Approved by: Deejay Diaz M.D. on 04/13/2022 at 23:42?? ECG Data Attestation: I personally reviewed and interpreted this ECG as follows: Interpretation: Sinus rhythm Ventricular rate 88 Left axis deviation LVH No ST T wave changes MDM Narrative Medical decision making narrative: Symptoms were much improved after Toradol. Ultrasound today does show gallbladder pathology. Labs concerning for pancreatitis most likely related to gallstones. Discussed the case with Dr. Milligan on-call for General surgery who recommended patient be admitted to medicine service for evaluation/treatment of his pancreatitis and she will consult upon admission. Discuss the case with hospitalist who will admit further evaluation. Discharge Plan Departure Patient Disposition: Admitted As Inpatient Clinical Impression: Pancreatitis, Acute cholecystitis Admit Date/Time: 04/14/22 01:17 Admit Provider: Yesica Friedman
--- NOTE | 2022-04-13 21:44 | DI.US.S_ITS ---
PROCEDURE: US ABDOMEN LIMITED INDICATIONS: RUQ US eval for GB pathology TECHNIQUE: Real-time focused scanning was performed of the abdomen, with image documentation. COMPARISON: None. FINDINGS: Evaluation limited by body habitus. The liver was not well visualized and is incompletely evaluated. Gallbladder is distended with heterogeneous internal contents consistent with complex fluid or a soft tissue mass. There is no internal vascularity on color Doppler interrogation. No pericholecystic fluid or reported sonographic Isidro's sign. Intra and extrahepatic biliary ducts not well visualized due to body habitus and bowel gas. Pancreas also not well visualized. IMPRESSION: 1. Distention of the gallbladder with heterogeneous filling defects consistent with complex fluid or soft tissue mass. Recommend further evaluation with a contrast enhanced MRI when clinically feasible. Dictated by: Deejay Diaz M.D. on 04/13/2022 at 23:38 Approved by: Deejay Diaz M.D. on 04/13/2022 at 23:42
[2022-04-13 21:45] LABS: NT-proBNP (BNP-Adult 18+) 70 pg/mL (<450)
[2022-04-13] MEDS: ONDANSETRON 4 MG/2 ML INJ IV (21:48)
[2022-04-13 21:49] LABS: Troponin I < 0.012 ng/mL (0.01-0.034)
[2022-04-13] MEDS: MORPHINE 4 MG/ML INJ IV (21:50)
[2022-04-13 22:04] LABS: Lipase 11315 U/L (23-300)
[2022-04-13] MEDS: KETOROLAC 30 MG/ML VIAL IV (22:14)
[2022-04-14] VITALS (26 sets, daily range): BP systolic 113–154; BP diastolic 62–88; PULSE 78–95; RESP 16–29; TEMP 36.2–37; O2SAT 16–99; BMI 43.6
[2022-04-14] MEDS: PIPERACILLIN/TAZO 4.5 GM in SODIUM CHLORIDE 0.9% 100 ML IV (01:21)
[2022-04-14] MEDS: SODIUM CHLORIDE 0.9% 1,000 ML 150 ML IV (01:22)
--- NOTE | 2022-04-14 01:40 | P.HP_ITS ---
History of Present Illness History of Present Illness Date Patient Seen: 04/14/22 Time Patient Seen: 01:00 Chief complaint: SOB/ABD. 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 He denies chest pain, shortness O breath, diarrhea, feve rs sweats or chills. [facility] Emergency Department records from his visit on March 28 due to abdominal pain was concerning for a number of cardiac reasons but was ruled out. They did a CT of the abdomen and found that he had a gallstone in the gallbladder neck which appears to be obstructing up to 1 cm with a positive sonographic Isidro sign. At that time they did not see any gallbladder wall thickening or pericholecystic fluid but were consistent with acute cholecystitis. He was discharged and informed that they would try to for refer him to a surgeon at [facility] due to the high risk of performing abdominal surgery due to age and body habitus. Patient is anticoagulated on Xarelto. After he underwent ablation and was no longer noted to be in atrial fibrillation, they discontinued his Xarelto and then several weeks later developed massive bilateral PEs and was eventually put back onto anticoagulation. At that time it appeared to be unprovoked, he had no cancer diagnosis, flights or protracted travel. Ultrasound done in the ED was not able to visualize the gallbladder neck, though the official report notes ?gallbladder is distended with heterogeneous internal contents consistent with complex fluid or soft tissue mass. There is no in ternal vascularity on color Doppler interrogation. No pericholecystic fluid or reported sonographic Isidro's sign ?. ED provider consulted surgery and due to the patient's massively elevated lipase they want to wait until his pancreas settles down before performing any surgery. He is afebrile, blood pressure 136/75, heart rate 95 respiratory rate 29 oxygen saturation of 88% on room air he weighs 154 kg with a BMI of 44.2. His white count is mildly elevated at 11.6 he is mildly anemic with a hemoglobin and hematocrit of 12.7 and 38.4 has a mild left shift of 9000 neutrophils creatinine is 1.38 with a EGFR 51 glucose 157 AST 147 ALT 69 alk-phos 276 total CK is 25 albumin 3.3 and a lipase of 11,315. COVID-19 PCR is negative. FH: Patient states his mother age 30 of uterine cancer, father of colon cancer does not recall his age, and sister age 76 of heart disease. Patient History Medical History Anticoagulated Arthritis Atypical chest pain (~2014) AVNRT (AV ciro re-entry tachycardia) BPH (benign prostatic hyperplasia) Chronic anticoagulation Degenerative disc disease Elevated cholesterol Erectile dysfunction Former smoker Gallstone pancreatitis GERD (gastroesophageal reflux disease) History of tachycardia Hyperlipidemia Hypertension Impairment of balance Lumbar post-laminectomy syndrome Lumbar strain Morbid obesity Obesity Obstructive sleep apnea on CPAP Paroxysmal A-fib Shortness of breath Sinus congestion Spinal stenosis SVT (supraventricular tachycardia) Surgical History H/O cardiac radiofrequency ablation H/O nasal septoplasty (~2012) H/O right knee surgery History of appendectomy History of laminectomy History of lumbar fusion History of total knee arthroplasty S/P epidural steroid injection S/P foot surgery, right Status post cataract extraction of both eyes with insertion of intraocular lens Family & Social History Social History: household members spouse Safety & Behavioral: Feels Safe in Current Yes Environment Been Physically Hurt or No Threatened By a Person Tobacco & Substance use: Tobacco type cigarettes,pipe,cigars Smoking Status Former smoker alcohol intake current alcohol intake frequency 0-2 drinks per day Substance Use Type does not use Meds Home Medications and Allergies Home Medications Medication Instructions Recorded Confirmed Type atorvastatin 20 mg tablet 20 mg PO BEDTIME 05/25/20 05/25/20 History meloxicam 15 mg tablet 15 mg PO DAILY PRN Pain 05/25/20 05/25/20 History metoprolol tartrate 25 mg tablet 25 mg PO BID 05/25/20 05/25/20 History omeprazole 20 mg tablet,delayed 20 mg PO BID 05/25/20 05/25/20 History release rivaroxaban 20 mg tablet (Xarelto) 20 mg PO QPM 05/25/20 05/25/20 History losartan 05/26/20 History magnesium 200 mg tablet 05/26/20 History nystatin-triamcinolone 100,000 1 applic topical BID 05/26/20 05/26/20 History unit/gram-0.1 % topical ointment sotalol 80 mg tablet 80 mg PO BID 05/26/20 05/26/20 History bisacodyl 10 mg rectal suppository 10 mg WV PRN PRN Constipation #5 ea 05/29/20 Rx docusate sodium 100 mg capsule 100 mg PO BID PRN constipation #40 05/29/20 Rx (DOK) caps hydrocodone 5 mg-acetaminophen 325 1 tab PO Q4HR PRN Pain, Moderate 05/29/20 Rx mg tablet (4-6) #20 tabs Allergies Allergy/AdvReac Type Severity Reaction Status Date / Time tramadol Allergy Unknown Doesn't Verified 04/13/22 21:11 recall dronedarone AdvReac Mild Diarrhea Verified 04/13/22 21:11 Review of Systems Review of Systems ROS: Yes All systems reviewed with the patient and are negative except as otherwise documented Exam Vital Signs (past 8 hours): - 04/13/22 21:11 04/13/22 22:21 04/13/22 22:22 Temperature 96.4 F L Pulse Rate 97 H 88 85 Respiratory Rate 20 24 22 Blood Pressure 118/58 L Pulse Oximetry 100 98 95 Oxygen Delivery Method Room Air 04/13/22 22:22 04/13/22 22:30 04/13/22 22:30 Temperature Pulse Rate 88 Respiratory Rate 23 Blood Pressure 154/81 H 124/60 Pulse Oximetry 96 Oxygen Delivery Method 04/13/22 23:00 04/13/22 23:00 04/13/22 23:18 Temperature Pulse Rate 96 H Respiratory Rate 26 H Blood Pressure 154/70 H 142/72 H Pulse Oximetry 92 Oxygen Delivery Method 04/13/22 23:18 04/13/22 23:29 04/13/22 23:30 Temperature Pulse Rate 93 H 93 H Respiratory Rate 25 H 25 H Blood Pressure 138/70 Pulse Oximetry 98 93 Oxygen Delivery Method Oxygen Delivery Method Room Air Narrative Exam Narrative: Gen: Alert, oriented, morbidly obese 81 male, NAD HEENT: normocephalic, atraumatic, conjunctiva clear, sclera non-icteric, oral mucosa pink and moist Neck: supple, full ROM, no JVD, trachea is midline Resp: Lungs CTA, labored breathing with exercise intolerance CV: RRR, no murmur or rubs Abd: Obese, soft, non-tender, normoactive BTs Skin: no lesions or rashes, dry and intact Neuro: Alert and oriented X 4 w/no focal deficits. Speech clear and coherent. Extremities: moves all 4 extremities, is ambulatory, negative David?s sign Psyche: normal mood and affect. Objective Labs Result Diagrams: 04/13/22 21:16 04/13/22 21:16 Labs: Laboratory Results - last 24 hr 04/13/22 04/13/22 04/13/22 21:16 21:16 21:16 WBC 11.6 H RBC 4.31 L Hgb 12.7 L Hct 38.4 L MCV 89.1 MCH 29.4 MCHC 33.0 RDW 14.8 Plt Count 366 Neut % (Auto) 77.9 H Lymph % (Auto) 15.6 L [place] % (Auto) 4.9 Eos % (Auto) 0.8 L Baso % (Auto) 0.8 Neut # (Auto) 9000 H Lymph # (Auto) 1800 [place] # (Auto) 600 Eos # (Auto) 100 Baso # (Auto) 100 PT 20.7 H INR 1.8 H APTT 36 Sodium 138 Potassium 4.2 Chloride 100 Carbon Dioxide 29 BUN 15 Creatinine 1.38 H Estimated GFR 51 L BUN/Creatinine Ratio 10.9 Glucose 157 H Calcium 8.6 Magnesium 1.8 Total Bilirubin 0.6 AST 147 H ALT 69 H Alkaline Phosphatase 276 H Total Creatine Kinase 25 L CK-MB (CK-2) TNP CK-MB (CK-2) Rel Index TNP Troponin I < 0.012 NT-Pro-B Natriuret Pep Total Protein 6.6 Albumin 3.3 L Globulin 3.3 Albumin/Globulin Ratio 1.0 Lipase 92198 H SARS-CoV-2 (PCR) 04/13/22 04/13/22 21:16 21:16 WBC RBC Hgb Hct MCV MCH MCHC RDW Plt Count Neut % (Auto) Lymph % (Auto) [place] % (Auto) Eos % (Auto) Baso % (Auto) Neut # (Auto) Lymph # (Auto) [place] # (Auto) Eos # (Auto) Baso # (Auto) PT INR APTT Sodium Potassium Chloride Carbon Dioxide BUN Creatinine Estimated GFR BUN/Creatinine Ratio Glucose Calcium Magnesium Total Bilirubin AST ALT Alkaline Phosphatase Total Creatine Kinase CK-MB (CK-2) CK-MB (CK-2) Rel Index Troponin I NT-Pro-B Natriuret Pep 70 Total Protein Albumin Globulin Albumin/Globulin Ratio Lipase SARS-CoV-2 (PCR) Negative Assessment & Plan Assessment & Plan narrative: Sony Cade is admitted for acute gallstone pancreatitis. Acute gallstone pancreatitis, present on admission * He is started on IV Zosyn * Surgery will consult on the patient however his lipase needs to come down significantly in order for them to feel comfortable removing his gallbladder * Pain control with IV ketorolac and IV Dilaudid Essential hypertension with a history of AV ciro tachycardia * He will continue home dose of metoprolol succinate 25 mg p.o. b.i.d. * He was prescribed losartan however he does not feel he should take it until approved by Dr. Beckford in [place] who previously discontinued this. CAD, chronic * Continue home dose of atorvastatin 20 mg p.o. at bedtime History of bilateral PEs * Continue home dose of Xarelto 20 mg daily VTE Prophylaxis: Wells risk score 3 bilateral SCDs, patient is anticoagulated on Xarelto. Patient is admitted to the inpatient service due to the severity of disease, risks of further disease progression and this stay is expected to exceed 2 midnights. FEN: IV fluids: Saline lock, diet: NPO until seen by surgery, labs: CBC, C/BMP, liver enzymes, Mag, PT/INR Consultants Dr. Milligan, general surgery care and involvement in the patient?s care is appreciated. Dispo: Admit to inpatient service, probable discharge to home after cholecystectomy. Code status: Full code as discussed with the patient who identifies his , [place] as his surrogate and POA. [X] I have utilized all available immediate resources to obtain, update, or review of the patient's current medications VTE Deep Vein Thrombosis/Pulmonary Embolism Present on Admission: No MIPS - Admit I confirm the patient?s Advance Care Plan is present, Code status is documented, Surrogate decision maker is in patient?s record: Yes MIPS - DC The patient has current or prior documentation of left ventricular ejection fraction (LVEF) less than 40%, or moderate or severely depressed left ventricular systolic function.: No COVID-19 COVID-19 status: Negative Result date/Date tested (Pos, Neg/Pending): 04/14/22 Scores Wells' Criteria for PE Clinical signs and symptoms of DVT: No PE is #1 Dx or equally likely: No Heart rate > 100: Yes Immobilization at least 3 days or surg in previous 4 weeks: No History of PE or DVT: Yes Hemoptysis: No Malignancy w/Treatment within 6 months or palliative: No Wells' PE Score total: 3.0
[2022-04-14] MEDS: RIVAROXABAN 10 MG TABLET 20 MG PO (01:57)
[2022-04-14] MEDS: SODIUM CHLORIDE 0.45% 1,000 ML 100 ML IV (03:07)
[2022-04-14] MEDS: SODIUM CHLORIDE 0.9% 1,000 ML 100 ML IV ×2 (04:47→20:19)
[2022-04-14] MEDS: PIPERACILLIN/TAZO 3.375 GM in SODIUM CHLORIDE 0.9% 100 ML IV ×3 (05:28→20:18)
[2022-04-14] MEDS: KETOROLAC 30 MG/ML VIAL IV (08:46)
[2022-04-14] MEDS: ONDANSETRON 4 MG/2 ML INJ IV ×2 (09:52→13:28)
[2022-04-14] MEDS: METOPROLOL IR 25 MG TABLET PO ×2 (09:54→20:18)
[2022-04-14] MEDS: HYDROMORPHONE 0.5 MG INJ IV (10:30)
[2022-04-14] MEDS: ATORVASTATIN 20 MG TABLET PO (20:18)
--- NOTE | 2022-04-15 03:29 | PC.NURSE ---
Pt is AxOx4, independent and cooperative. VSS, pt denied pain. Pt slept well all night. Pt is NPO and NS is running 100 ml/hr.No other changes. Continue monitor.
[2022-04-15 04:20] VITALS: BP 133/73; PULSE 82; RESP 21; TEMP 36.6; O2SAT 96
[2022-04-15] MEDS: PIPERACILLIN/TAZO 3.375 GM in SODIUM CHLORIDE 0.9% 100 ML IV ×3 (04:31→21:57)
[2022-04-15] MEDS: SODIUM CHLORIDE 0.9% 1,000 ML 100 ML IV (04:36)
[2022-04-15 08:37] VITALS: BP 140/71; PULSE 89; RESP 20; TEMP 36.6; O2SAT 94
[2022-04-15] MEDS: METOPROLOL IR 25 MG TABLET PO ×2 (08:48→21:57)
[2022-04-15 09:41] LABS: Add Manual Diff / Slide Review NO; Basophils Absolute Auto 0 /uL (0-100); Basophils Percent Auto 0.3 % (0-2); Eosinophils Absolute Auto 100 /uL (0-450); Eosinophils Percent Auto 0.9 % (2-4); Hematocrit 35.7 % (41-53); Hemoglobin 11.7 g/dL (13.5-17.5); Lymphocytes Absolute Auto 800 /uL (1100-4500); Lymphocytes Percent Auto 9.1 % (25-40); Mean Corpuscular HGB Conc 32.7 % (30-36); Mean Corpuscular Hemoglobin 29.3 PG (26-34); Mean Corpuscular Volume 89.7 fL (80-100); Monocytes Absolute Auto 700 /uL (0-900); Monocytes Percent Auto 7.1 % (3-14); Neutrophils Absolute Auto 7700 /uL (1500-7000); Neutrophils Percent Auto 82.6 % (50-75); Platelet Count 312 X10^3/uL (150-400); Red Blood Cell Count 3.98 X10^6/uL (4.5-5.9); Red Cell Distribution Width 14.8 % (11.6-14.8); White Blood Cell Count 9.3 X10^3/uL (4.5-11.0)
[2022-04-15 10:07] LABS: Alanine Aminotransferase 212 IU/L (<50); Albumin Globulin Ratio 0.9 (1.0-2.8); Alkaline Phosphatase 385 U/L (38-126); Aspartate Aminotransferase 174 IU/L (17-59); BUN Creatinine Ratio 12.7 (6-22); Bilirubin Total 4.5 mg/dL (0.2-1.3); Blood Urea Nitrogen 18 mg/dL (9-20); Calcium 8.4 mg/dL (8.4-10.2); Carbon Dioxide 31 mmol/L (22-32); Chloride 104 mmol/L (98-107); Estimated Glomerular Filt Rate 50 mL/min (>60); Globulin 3.3 g/dL (1.7-4.1); Glucose 123 mg/dL (80-110); HEMOLYSIS < 15 (0-50); Potassium 4.5 mmol/L (3.4-5.1); Sodium 140 mmol/L (137-145); Total Protein 6.3 g/dL (6.3-8.2)
--- NOTE | 2022-04-15 11:18 | PM.CALLCOV.1 ---
Call Coverage Note Note Date of Patient Contact: 04/15/22 Narrative of Care Provided: Chart review only. Known gallstone pancreatitis. Now with rise in LFT's suggestive of common bile duct stones. Body habitus too large for our MRI to confirm common bile duct stones. Needs tranfer to facility for ERCP that can not be done here.
--- NOTE | 2022-04-15 13:55 | PC.NURSE ---
Day shift: Pt out of room and going to [facility] for imaging and possible gallstone removal. Left unit via BLS at approx 1400.
--- NOTE | 2022-04-15 16:00 | PC.NURSE ---
Day shift: Pt at [facility] for procedure still (1600). Not in room at this time.
--- NOTE | 2022-04-15 17:32 | PC.NURSE ---
Day shift: Report given to this newswriter from [place] from day surgery at [facility]. Per his report Dr Scooter Calles wants Pt to not take Xeralto for [address] Márquez made aware.
--- NOTE | 2022-04-15 18:00 | P.PN_ITS ---
Subjective Subjective Date Patient Seen: 04/15/22 Time Patient Seen: 08:00 Interval history: He feels well today with good pain control and minimal nausea. Exam Vital Signs (past 8 hours): Oxygen Delivery Method Room Air Oxygen Flow Rate 0 Narrative Exam Narrative: Gen: no acute distress Resp: clear bilaterally CV: regular rate and rhythm Abd: soft, nontender, nondistended, no organomegaly Objective Labs Result Diagrams: 04/15/22 09:25 04/15/22 09:25 Labs: Laboratory Results - last 24 hr 04/15/22 04/15/22 09:25 09:25 WBC 9.3 RBC 3.98 L Hgb 11.7 L Hct 35.7 L MCV 89.7 MCH 29.3 MCHC 32.7 RDW 14.8 Plt Count 312 Neut % (Auto) 82.6 H Lymph % (Auto) 9.1 L [place] % (Auto) 7.1 Eos % (Auto) 0.9 L Baso % (Auto) 0.3 Neut # (Auto) 7700 H Lymph # (Auto) 800 L [place] # (Auto) 700 Eos # (Auto) 100 Baso # (Auto) 0 Sodium 140 Potassium 4.5 Chloride 104 Carbon Dioxide 31 BUN 18 Creatinine 1.42 H Estimated GFR 50 L BUN/Creatinine Ratio 12.7 Glucose 123 H Calcium 8.4 Total Bilirubin 4.5 H AST 174 H ALT 212 H Alkaline Phosphatase 385 H Total Protein 6.3 Albumin 3.0 L Globulin 3.3 Albumin/Globulin Ratio 0.9 L PFSH Medical History Anticoagulated Arthritis Atypical chest pain (~2014) AVNRT (AV ciro re-entry tachycardia) BPH (benign prostatic hyperplasia) Chronic anticoagulation Degenerative disc disease Elevated cholesterol Erectile dysfunction Former smoker Gallstone pancreatitis GERD (gastroesophageal reflux disease) History of tachycardia Hyperlipidemia Hypertension Impairment of balance Lumbar post-laminectomy syndrome Lumbar strain Morbid obesity Obesity Obstructive sleep apnea on CPAP Paroxysmal A-fib Shortness of breath Sinus congestion Spinal stenosis SVT (supraventricular tachycardia) Surgical History H/O cardiac radiofrequency ablation H/O nasal septoplasty (~2012) H/O right knee surgery History of appendectomy History of laminectomy History of lumbar fusion History of total knee arthroplasty S/P epidural steroid injection S/P foot surgery, right Status post cataract extraction of both eyes with insertion of intraocular lens Social History household members: spouse Smoking Status: Former smoker alcohol intake: current Assessment & Plan Assessment & Plan narrative: 1. Choledocholithiasis with transaminitis and acute gallstone pancreatitis -plan for ERCP today with transfer to [facility] and then transfer back here 2. Acute cholecystitis -continue IV zosyn -surgical plan per general surgery 3. CAD, chronic -continue statin History of bilateral PEs -hold xarelto for 5 days per GI after stent placement COVID-19 COVID-19 status: Negative Result date/Date tested (Pos, Neg/Pending): 04/14/22 Time Spent With Patient Critical Care time: I spent a total of [] minutes of critical care time on this patient's care today; this time is exclusive of procedural time.
[2022-04-15 18:06] VITALS: BP 149/82; PULSE 88; RESP 18; TEMP 36.4; O2SAT 96
--- NOTE | 2022-04-15 18:35 | PC.NURSE ---
Day shift: Pt back in room from [facility] at approx 1750. Denies any pain or nausea. He does have a persistent cough. VS WNL. RA 96%. Ambulating well. OOB to BR and had a small BM. Call light in reach. Wants to sit in chair for now. Uses call light proper.
[2022-04-15 21:28] VITALS: BP 143/83; PULSE 91; RESP 18; TEMP 36.6; O2SAT 96
[2022-04-15] MEDS: ATORVASTATIN 20 MG TABLET PO (21:57)
[2022-04-16 03:15] VITALS: BP 151/82; PULSE 82; RESP 18; TEMP 36.8; O2SAT 95
[2022-04-16] MEDS: PIPERACILLIN/TAZO 3.375 GM in SODIUM CHLORIDE 0.9% 100 ML IV (04:48)
[2022-04-16 07:11] LABS: Hematocrit 33.6 % (41-53); Mean Corpuscular HGB Conc 32.7 % (30-36); Mean Corpuscular Hemoglobin 29.2 PG (26-34); Mean Corpuscular Volume 89.3 fL (80-100); Platelet Count 268 X10^3/uL (150-400); Red Blood Cell Count 3.77 X10^6/uL (4.5-5.9); Red Cell Distribution Width 14.7 % (11.6-14.8)
[2022-04-16 07:36] LABS: Alanine Aminotransferase 168 IU/L (<50); Albumin 2.8 g/dL (3.5-5.0); Albumin Globulin Ratio 0.8 (1.0-2.8); Alkaline Phosphatase 375 U/L (38-126); Aspartate Aminotransferase 104 IU/L (17-59); Bilirubin Total 1.8 mg/dL (0.2-1.3); Blood Urea Nitrogen 15 mg/dL (9-20); Calcium 8.4 mg/dL (8.4-10.2); Carbon Dioxide 27 mmol/L (22-32); Chloride 104 mmol/L (98-107); Estimated Glomerular Filt Rate > 60 mL/min (>60); Globulin 3.3 g/dL (1.7-4.1); Glucose 139 mg/dL (80-110); HEMOLYSIS < 15 (0-50); Potassium 4.1 mmol/L (3.4-5.1); Sodium 138 mmol/L (137-145); Total Protein 6.1 g/dL (6.3-8.2)
[2022-04-16 08:35] VITALS: BP 142/72; PULSE 71; RESP 18; TEMP 36.1; O2SAT 96
[2022-04-16] MEDS: METOPROLOL IR 25 MG TABLET PO (09:20)
--- NOTE | 2022-04-16 13:23 | PC.NURSE ---
Day shift: Paperwork signed and all questions answered. Pt tolerated lunch well. NO pain or nausea reported. Pt has new MD scripts and all personal belongings. Taken to car via WC by this health technical writer at approx 1320. Pt ambulating w/o issue. Voiding well and has has BM's. Pt encouraged to call Dr Milligan's office Monday to make sure they get him in for gallbladder removal.
--- NOTE | 2022-04-16 14:08 | CM.DPNOTE ---
Initial DCP Assessment Note Pt is an 81 yo male, resident of [place], arrives with SOB/abd pain and admitted for acute gallstone pancreatitis. PCP: Unknown Payer: [employer]/[facility] Reviewed chart, met w/patient and spouse at bedside to introduce role. Patient denies needs from this [employer], states he is indp at baseline, lives w/spouse and plans to return upon discharge No barriers identified at this time to patient's safe discharge home w/family to assist; close outpatient f/u recommended. CATRACHITO Chew
--- NOTE | 2022-04-16 21:12 | P.DS_ITS ---
History of Present Illness History of Present Illness Date Patient Seen: 04/19/22 Time Patient Seen: 12:37 Chief complaint: SOB/ABD. 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 He denies chest pain, shortness O breath, diarrhea, fevers sweats or chills. [facility] Emergency Department records from his visit on March 28 due to abdominal pain was concerning for a number of cardiac reasons but was ruled out. They did a CT of the abdomen and found that he had a gallstone in the gallbladder neck which appears to be obstructing up to 1 cm with a positive sonographic Isidro sign. At that time they did not see any gallbladder wall thickening or pericholecystic fluid but were consistent with acute cholecystitis. He was discharged and informed that they would try to for refer him to a surgeon at [facility] due to the high risk of performing abdominal surgery due to age and body habitus. Patient is anticoagulated on Xarelto. After he underwent ablation and was no longer noted to be in atrial fibrillation, they discontinued his Xarelto and then several weeks later developed massive bilateral PEs and was eventually put back onto anticoagulation. At that time it appeared to be unprovoked, he had no cancer diagnosis, flights or protracted travel. Ultrasound done in the ED was not able to visualize the gallbladder neck, though the official report notes ?gallbladder is distended with heterogeneous internal contents consistent with complex fluid or soft tissue mass. There is no internal vascularity on color Doppler interrogation. No pericholecystic fluid or reported sonographic Isidro's sign ?. ED provider consulted surgery and due to the patient's massively elevated lipase they want to wait until his pancreas settles down before performing any surgery. He is afebrile, blood pressure 136/75, heart rate 95 respiratory rate 29 oxygen saturation of 88% on room air he weighs 154 kg with a BMI of 44.2. His white count is mildly elevated at 11.6 he is mildly anemic with a hemoglobin and hematocrit of 12.7 and 38.4 has a mild left shift of 9000 neutrophils creatinine is 1.38 with a EGFR 51 glucose 157 AST 147 ALT 69 alk-phos 276 total CK is 25 albumin 3.3 and a lipase of 11,315. COVID-19 PCR is negative. FH: Patient states his mother age 30 of uterine cancer, father of colon cancer does not recall his age, and sister age 76 of heart disease. Discharge Providers Provider Date of admission: 04/14/22 01:17 Discharge Date: 04/16/22 Consults: 04/14/22 00:22 Consult to General Surgery Stat Comment: Consulting Provider: Karen Milligan Reason for consultation: admission Has provider been notified: Yes Discharge provider: Atul Márquez MD Summary Hospital Course Discharge Diagnosis: 1. Gallstone pancreatitis 2. Choledocholithiasis 3. Acute cholecystitis 4. Pulmonary embolism 5. COPD 6. Morbid obesity 7. CAD Hospital Course: Mr. Cade was admitting with abdominal pain. He had elevated LFTs and elevated lipase consistent with pancreatitis from gallstone. He had recently been discharged from another hospital for cholecystitis with plan for outpatient cholecystectomy. Ultimately here he was transferred to [facility] for ERCP which removed stones, but did not need any stent placment. His abdominal pain resolved. Per GI physician he was to hold his eliquis for 5 days. He was discharged on oral antibiotics. Discussed with surgery who planned to expedite outpatient surgery for cholecystectomy within the next few days. He is a known high risk given COPD, need for anticoagulation and morbid obesity. Plan was discussed at length with him and he agreed. Exam Vital Signs (past 8 hours): Oxygen Delivery Method Room Air Oxygen Flow Rate 0 Narrative Exam Narrative: Gen: no acute distress Resp: clear bilaterally CV: regular rate and rhythm Abd: soft, nontender, nondistended, no organomegaly Objective Labs Result Diagrams: 04/16/22 05:56 04/16/22 05:56 REPLACED BY [facility] Medical History Anticoagulated Arthritis Atypical chest pain (~2014) AVNRT (AV ciro re-entry tachycardia) BPH (benign prostatic hyperplasia) Chronic anticoagulation Degenerative disc disease Elevated cholesterol Erectile dysfunction Former smoker Gallstone pancreatitis GERD (gastroesophageal reflux disease) History of tachycardia Hyperlipidemia Hypertension Impairment of balance Lumbar post-laminectomy syndrome Lumbar strain Morbid obesity Obesity Obstructive sleep apnea on CPAP Paroxysmal A-fib Shortness of breath Sinus congestion Spinal stenosis SVT (supraventricular tachycardia) Surgical History H/O cardiac radiofrequency ablation H/O nasal septoplasty (~2012) H/O right knee surgery History of appendectomy History of laminectomy History of lumbar fusion History of total knee arthroplasty S/P epidural steroid injection S/P foot surgery, right Status post cataract extraction of both eyes with insertion of intraocular lens Social History household members: spouse Smoking Status: Former smoker alcohol intake: current Discharge Plan Discharge Plan Patient Disposition: Home Provider Discharge Comment: Mr. Cade was admitted with a gallstone blocking one of his ducts. He had it cleared with an ERCP procedure. He had a inflamed pancreas and gallbladder. He improved with treatment. He should follow up with Dr. Milligan, the surgeon, who is planning to take out his gallbladder this Monday or Monday. He should hold his xarelto through Monday in preparation for surgery. He should continue taking his antibiotics. He can call Dr. Milligan's office if he does not hear back on Monday to plan the surgery Discharge orders & Medications Prescriptions: New levofloxacin 750 mg tablet 750 mg PO DAILY Qty: 7 0RF metronidazole 500 mg tablet 500 mg PO Q8H Qty: 21 0RF Continued atorvastatin 20 mg Tablet 20 mg PO BEDTIME meloxicam 15 mg Tablet 20 mg PO DAILY PRN (Reason: Pain) metoprolol tartrate 25 mg Tablet 25 mg PO BID omeprazole 20 mg Tablet,Delayed Release (Dr/Ec) 20 mg PO BID Xarelto 20 mg Tablet 20 mg PO QPM nystatin-triamcinolone 100,000-0.1 unit/gram-% Ointment 1 applic TOPICAL BID Rx Instructions: To affected areas No Action losartan 50 mg tablet 50 mg PO DAILY Follow up/Referrals: Karen Milligan MD [Physician] - 1 Week (follow up for cholecystitis) Diet/Activity/Treatments Diet: Regular Visit Report/Discharge Packet Instructions: Endoscopic Retrograde Cholangiopancreatography, Gallstones, DI for Endoscopic Retrograde Cholangiopancreatography, Cholecystectomy -- Laparoscopic Surgery
== END 2022-04-16 13:25 | disposition home or self-care (01) | DRG 439 ==
LOC: ED 04-14 00:48 → AC 04-14 01:17
PROVIDERS: Internal Medicine; Admitting Provider Nurse Practitioner Family; Emergency Provider Emergency Medicine; Referring Provider Emergency Medicine; Visit Provider Nurse Practitioner Family
DX: K85.10 Biliary acute pancreatitis without necrosis or infection (principal); K80.42 Calculus of bile duct with acute cholecystitis without obstruction; Z68.41 Body mass index [BMI] 40.0-44.9, adult; I10 Essential (primary) hypertension; I25.10 Atherosclerotic heart disease of native coronary artery without angina pectoris; J44.9 Chronic obstructive pulmonary disease, unspecified; E66.01 Morbid (severe) obesity due to excess calories; E78.5 Hyperlipidemia, unspecified; K21.9 Gastro-esophageal reflux disease without esophagitis; Z87.891 Personal history of nicotine dependence; Z20.822 Contact with and (suspected) exposure to COVID-19; Z79.01 Long term (current) use of anticoagulants; Z86.711 Personal history of pulmonary embolism
CPT/HCPCS: 36415; 71045; 76705; 80053; 82550; 83690; 83735; 83880; 84484; 85025; 85027; 85610; 85730; 87635; 93005; 94660; 96365; 96375; 96376; 99284; C9803; J1170; J1885; J2270; J2405; J2543; J7050

== ENCOUNTER 2022-04-20 15:00 | Inpatient (IN) | payer MEDICARE, OTHER, SELFPAY ==
[2022-04-14 11:18] VITALS: BMI 43.6
[2022-04-19] VITALS (14 sets, daily range): BP systolic 104–154; BP diastolic 61–90; PULSE 75–94; RESP 14–29; TEMP 35.9–37; O2SAT 91–96; BMI 43.6
[2022-04-19 12:16] LABS: COVID19 -Nasal RAPID Negative (Negative)
[2022-04-19] MEDS: LACTATED RINGERS 1,000 ML 84 ML IV (12:24)
--- NOTE | 2022-04-19 12:37 | P.HP_ITS ---
History of Present Illness History of Present Illness Date Patient Seen: 04/19/22 Time Patient Seen: 12:37 Chief complaint: LAP TEVIN *OPB* Narrative: Admitted recently for gallstone pancreatitis with common bile duct stones. Was transported to [facility] for ERCP w/o stent and returned here. Discharge home in stable condition, anticoagulation held. Chronic anticoagulation due to h/o PE after stopping blood thinners after ablation treatment for his Afib. Currently c/o SOB. Has multiple comorbidities including BMI 43.7, COPD, cardiac arrhythmias and reflux. Patient History Medical History Anticoagulated Arthritis Atypical chest pain (~2014) AVNRT (AV ciro re-entry tachycardia) BPH (benign prostatic hyperplasia) Chronic anticoagulation Degenerative disc disease Elevated cholesterol Erectile dysfunction Former smoker Gallstone pancreatitis GERD (gastroesophageal reflux disease) History of tachycardia Hyperlipidemia Hypertension Impairment of balance Lumbar post-laminectomy syndrome Lumbar strain Morbid obesity Obesity Obstructive sleep apnea on CPAP Paroxysmal A-fib Shortness of breath Sinus congestion Spinal stenosis SVT (supraventricular tachycardia) Surgical History H/O cardiac radiofrequency ablation H/O nasal septoplasty (~2012) H/O right knee surgery History of appendectomy History of laminectomy History of lumbar fusion History of total knee arthroplasty S/P epidural steroid injection S/P foot surgery, right Status post cataract extraction of both eyes with insertion of intraocular lens Family & Social History Social History: household members spouse Tobacco & Substance use: Tobacco type cigarettes,pipe,cigars Smoking Status Former smoker alcohol intake current alcohol intake frequency 0-2 drinks per day Substance Use Type does not use Meds Home Medications and Allergies Home Medications Medication Instructions Recorded Confirmed Type atorvastatin 20 mg tablet 20 mg PO BEDTIME 05/25/20 04/19/22 History meloxicam 15 mg tablet 20 mg PO DAILY PRN Pain 05/25/20 04/19/22 History metoprolol tartrate 25 mg tablet 25 mg PO BID 05/25/20 04/19/22 History omeprazole 20 mg tablet,delayed 20 mg PO BID 05/25/20 04/19/22 History release rivaroxaban 20 mg tablet (Xarelto) 20 mg PO QPM 05/25/20 04/19/22 History nystatin-triamcinolone 100,000 1 applic topical BID 05/26/20 04/19/22 History unit/gram-0.1 % topical ointment levofloxacin 750 mg tablet 750 mg PO DAILY #7 tabs 04/16/22 04/19/22 Rx metronidazole 500 mg tablet 500 mg PO Q8H #21 tabs 04/16/22 04/19/22 Rx losartan 50 mg tablet 50 mg PO DAILY 04/19/22 04/19/22 History Allergies Allergy/AdvReac Type Severity Reaction Status Date / Time tramadol Allergy Unknown Doesn't Verified 04/19/22 12:06 recall dronedarone AdvReac Mild Diarrhea Verified 04/19/22 12:06 Review of Systems Review of Systems Narrative: Epigastric abdominal pain with SOB Exam Const General: anxious Nutritional Appearance: obese Orientation: alert, awake and oriented x3 HENMT Head: normocephalic Ears: hearing grossly normal bilaterally Nose: external nose normal Eyes Sclera: sclerae normal Neck Neck: trachea midline Chest Chest: normal inspection of the chest Resp Effort & Inspection: able to speak in complete sentences and abnormal respiratory pattern (shallow breathing, tachepnic ) Cardio Rate: regular rate Rhythm: regular rhythm GI Inspection: large pannus and obesity Palpation: soft Skin General: atrophy and ecchymosis Lesions: no lesions Rashes: no rashes Neuro General: patient alert, patient awake and patient oriented x3 Cognition: normal cognition Psych Appearance: grossly normal Mental Status: mental status grossly normal Judgment: judgment good Objective Labs Labs: Laboratory Results - last 24 hr 04/19/22 11:49 SARS-CoV-2 (PCR) Negative Assessment & Plan Assessment & Plan narrative: Gallstone pancreatitis, S/p ERCP w/o stent for biliary obstruction High surgical risk due to COPD, morbid obesity, and chronic anticoagulation. Plan: Lap tevin. Possible surgical drainage or subtotal cholecystectomy if severe inflamation exist. Preop EKG for atypical chest pain. COVID-19 COVID-19 status: Negative Time Spent With Patient Time with patient: 30 to 49 minutes with 50% spent counseling/coordinating care Critical Care time: I spent a total of [] minutes of critical care time on this patient's care today; this time is exclusive of procedural time.
[2022-04-19] MEDS: CEFAZOLIN 3 GM IN 0.9 % NACL 3 GM/100 ML PLAST..BAG IV (13:27)
--- NOTE | 2022-04-19 14:01 | SUR.OPER ---
Supine on padded OR bed, head on pillow, arms secured on padded arm boards at <90 degrees abduction, legs uncrossed, safety belt at thigh, tape over blanket over lower legs. Footboard on bed to prevent sliding, blanket rolls under wrists to support arms.
[2022-04-19] MEDS: TRANEXAMIC ACID 1,000 MG in SODIUM CHLORIDE 0.9% 100 ML 200 MG IV (14:12)
[2022-04-19] MEDS: BUPIVACAINE 0.5% W/ EPI (PF) 30 ML VIAL INJ (14:14)
--- NOTE | 2022-04-19 15:33 | PM.OP.1 ---
Operative Date/Time/Diagnoses Date of procedure: 04/19/22 Time of procedure: 15:33 Pre-op diagnosis: gallstone pancreatitis, acute cholecystitis Post-op diagnosis: same Procedure & Clinicians Procedure: Laparoscopic cholecystostomy tube, repair of umbilical hernia Same procedure as scheduled: No Indications: Acute cholecystitis, recent gallstone pancreatitis, status post ERCP without stent Surgeon: Karen Milligan Click Yes if Unassisted: Yes Anesthesia Type: General Operative Notes Findings: Significant inflammation of the entire epigastric area. Fatty liver. Gallbladder not visible due to coverage of omentum. Incarcerated umbilical hernia Closure Type: primary Specimen(s): none sent Prosthetic devices, grafts, tissues, transplants, or devices: 19 Etienne drain for cholecystostomy tube Estimated Blood Loss (mL): 100 Procedure in detail: Preop diagnosis: Gallstone pancreatitis, umbilical hernia Postop diagnosis: Acute cholecystitis, acute gallstone pancreatitis, incarcerated umbilical hernia Procedure: Diagnostic laparoscopy with placement of cholecystostomy tube and repair of umbilical hernia Surgeon: Teri Milligan MD Anesthetic: Carmina Lee CRNA Findings: Morbid obesity, fatty liver, intense inflammation of the entire epigastric area. I was able to open the top of the gallbladder and suction out purulent material along with blood clots. Not amendable to safe laparoscopic resection. Procedure: Patient placed in a supine position. Prepped and draped sterile fashion to expose the abdomen. Supraumbilical port site was placed using an open technique in the existing umbilical hernia. The umbilical hernia was reduced and the fascial edges were cleared. Through this a 12 mm port was placed. Insufflation began all other ports were placed under direct vision including a midepigastric 10 mm port. Two 5 mm ports in the right lateral abdomen. Significant amount of time was used to mobilize the omentum which was densely adhered to the gallbladder with little success. Converted to LigaSure device to further open the top of the gallbladder. Suction device was placed into the gallbladder ?clot sucker? to remove large pieces of sludge, pus, clots. Through the lateral 5 mm port site a 19 [place]ut[place] Etienne drain was placed dropping it into the open gallbladder and looping it around to the edge of the liver for complete drainage. Drain was sutured to the anterior abdominal wall with 3-0 nylon. We then removed all ports and began closure. Closure consisted of repair of umbilical hernia using interrupted 2-0 Vicryl. Skin was closed with a running 4-0 Vicryl. Steri-Strips and sterile dressings were placed. Patient was awakened, extubated, taken to recovery room in stable condition. Needle, instrument, sponge counts were correct. Blood loss: 100 mL Specimen: None Complications: none Post-operative Condition: stable Disposition: PACU
[2022-04-19] MEDS: metroNIDAZOLE 500 MG TABLET PO (18:19)
[2022-04-19] MEDS: SODIUM CHLORIDE 0.9% 1,000 ML 100 ML IV (18:19)
[2022-04-19] MEDS: ACETAMINOPHEN 325 MG TABLET 650 MG PO (18:20)
[2022-04-19] MEDS: GABAPENTIN 300 MG CAPSULE PO (20:22)
[2022-04-19] MEDS: METOPROLOL IR 25 MG TABLET PO (20:22)
[2022-04-19] MEDS: levoFLOXacin 250 MG TABLET 750 MG PO (20:22)
[2022-04-19] MEDS: PANTOPRAZOLE DR 20 MG TABLET PO (20:22)
[2022-04-19] MEDS: ATORVASTATIN 20 MG TABLET PO (20:22)
[2022-04-19] MEDS: ONDANSETRON 4 MG/2 ML INJ IV (21:57)
[2022-04-19] MEDS: OXYCODONE 5 MG/5 ML ORAL SOLUTION 10 MG PO (22:04)
[2022-04-19] MEDS: HEPARIN 5,000 UNIT/ML VIAL 5000 UNIT SUBCUT (23:58)
[2022-04-20] VITALS (8 sets, daily range): BP systolic 102–138; BP diastolic 64–79; PULSE 72–87; RESP 18–24; TEMP 35.7–37.4; O2SAT 93–96
[2022-04-20] MEDS: metroNIDAZOLE 500 MG TABLET PO ×2 (01:27→09:13)
[2022-04-20] MEDS: OXYCODONE 5 MG/5 ML ORAL SOLUTION 10 MG PO ×2 (02:18→11:21)
[2022-04-20] MEDS: SODIUM CHLORIDE 0.9% 1,000 ML 100 ML IV (04:30)
[2022-04-20 07:15] LABS: Add Manual Diff / Slide Review NO; Basophils Absolute Auto 0 /uL (0-100); Basophils Percent Auto 0.2 % (0-2); Eosinophils Absolute Auto 0 /uL (0-450); Eosinophils Percent Auto 0.2 % (2-4); Hematocrit 34.1 % (41-53); Hemoglobin 11.4 g/dL (13.5-17.5); Lymphocytes Absolute Auto 1100 /uL (1100-4500); Mean Corpuscular HGB Conc 33.4 % (30-36); Mean Corpuscular Hemoglobin 29.5 PG (26-34); Mean Corpuscular Volume 88.3 fL (80-100); Monocytes Absolute Auto 1100 /uL (0-900); Monocytes Percent Auto 9.6 % (3-14); Neutrophils Absolute Auto 9000 /uL (1500-7000); Platelet Count 215 X10^3/uL (150-400); Red Blood Cell Count 3.87 X10^6/uL (4.5-5.9); Red Cell Distribution Width 14.6 % (11.6-14.8); White Blood Cell Count 11.2 X10^3/uL (4.5-11.0)
[2022-04-20 07:45] LABS: Alanine Aminotransferase 72 IU/L (<50); Albumin 2.8 g/dL (3.5-5.0); Alkaline Phosphatase 224 U/L (38-126); Aspartate Aminotransferase 48 IU/L (17-59); BUN Creatinine Ratio 10.5 (6-22); Bilirubin Total 1.1 mg/dL (0.2-1.3); Blood Urea Nitrogen 12 mg/dL (9-20); Calcium 8.1 mg/dL (8.4-10.2); Carbon Dioxide 29 mmol/L (22-32); Chloride 101 mmol/L (98-107); Estimated Glomerular Filt Rate > 60 mL/min (>60); Globulin 2.9 g/dL (1.7-4.1); Glucose 117 mg/dL (80-110); HEMOLYSIS < 15 (0-50); Lipase 29 U/L (23-300); Potassium 4.5 mmol/L (3.4-5.1); Sodium 136 mmol/L (137-145); Total Protein 5.7 g/dL (6.3-8.2)
--- NOTE | 2022-04-20 08:23 | DI.CT.S_ITS ---
PROCEDURE: CT ABDOMEN PELVIS W CON INDICATIONS: pancreatitis, new tevin tube TECHNIQUE: After the administration of intravenous contrast, axial sections acquired from the lung bases to the pubic symphysis. Coronal and sagittal reformats were performed. For radiation dose reduction, the following was used: automated exposure control, adjustment of mA and/or kV according to patient size. COMPARISON: [facility], CR, XR ERCP BILIARY AND PANCREATIC, 04/15/2022, 17:26. [facility], US, US ABDOMEN LIMITED, 04/13/2022, 22:27. FINDINGS: Image quality: Suboptimal due to motion artifact. Lung bases: No pleural effusion. Scattered bandlike opacities present likely atelectasis. ABDOMEN: Liver: Small hypodensity in segment 4B is indeterminate but may represent a small cyst or hemangioma. Ill-defined hypodensity present within the liver abutting the gallbladder fossa. Gallbladder: Pronounced pericholecystic/right upper quadrant fat stranding present. A right upper quadrant approach percutaneous drain/cholecystostomy tube is present, tip appears to terminate within the gallbladder lumen abutting the anterior wall. Some intraluminal gas present within the gallbladder, also heterogeneous density material, indeterminate, possibly sludge or blood products, underlying neoplasm not excludable. Biliary ducts: Intrahepatic and extrahepatic pneumobilia present. No definite biliary ductal dilation. Pancreas: No dilation of the main pancreatic duct. No substantial peripancreatic fat stranding. Some fat stranding is present adjacent to the pancreatic head which could be related to the right upper quadrant/gallbladder process described above. No peripancreatic fluid collection demonstrated. Spleen: Unremarkable. Adrenal Glands: Unremarkable. Kidneys and Ureters: No hydronephrosis. Cortical cyst right mid kidney without suspicious features identified Stomach and Bowel: No bowel obstruction Peritoneum: Minimal pneumoperitoneum present in the right upper quadrant, could be related to postprocedure change/drain placement. No organized/drainable peritoneal fluid collection Abdominal Nodes: No retroperitoneal or mesenteric adenopathy by size criteria. Vessels: Aorta and inferior vena cava are normal in size. PELVIS: Pelvic Organs: Unremarkable. Bladder: Unremarkable. Pelvic Nodes: No enlarged lymph nodes. Miscellaneous: Fat containing left inguinal hernia Bones: Multilevel degenerative change of the visualized spine. Thoracolumbar fusion changes present. IMPRESSION: 1. Right upper quadrant approach percutaneous drain/cholecystostomy tube present, tip appears to terminate within the gallbladder lumen abutting the anterior gallbladder wall. There is significant pericholecystic fat stranding and some pericholecystic fluid present, suspicious for acute cholecystitis. Underlying gallbladder neoplasm is not excludable. 2. No peripancreatic fluid collection. Dictated by: Calin Woods M.D. on 04/20/2022 at 11:27 Approved by: Calin Woods M.D. on 04/20/2022 at 11:45
[2022-04-20] MEDS: PANTOPRAZOLE DR 20 MG TABLET PO ×2 (09:13→20:04)
[2022-04-20] MEDS: LOSARTAN 50 MG TABLET PO (09:13)
[2022-04-20] MEDS: METOPROLOL IR 25 MG TABLET PO ×2 (09:13→20:04)
[2022-04-20] MEDS: HEPARIN 5,000 UNIT/ML VIAL 5000 UNIT SUBCUT (09:13)
[2022-04-20] MEDS: ONDANSETRON 4 MG/2 ML INJ IV ×2 (09:16→20:07)
[2022-04-20] MEDS: ACETAMINOPHEN 325 MG TABLET 650 MG PO ×3 (11:21→23:33)
[2022-04-20] MEDS: fentaNYL 50 MCG/PATCH TOP (11:44)
--- NOTE | 2022-04-20 11:51 | PM.PNPO.1 ---
Subjective Subjective Date Patient Seen: 04/20/22 Time Patient Seen: 11:51 Interval history: Continues to complain of SOB, congestion and RUQ pain. Exam Vital Signs (past 8 hours): - 04/20/22 04:36 04/20/22 09:13 04/20/22 09:00 Temperature 97.5 F L Pulse Rate 78 78 Respiratory Rate 18 Blood Pressure 133/73 133/73 Pulse Oximetry 95 Oxygen Delivery Method Nasal Cannula Oxygen Flow Rate 4 04/20/22 10:11 Temperature 97.8 F Pulse Rate 87 Respiratory Rate 24 Blood Pressure 138/79 Pulse Oximetry 93 Oxygen Delivery Method Oxygen Flow Rate 4 Oxygen Delivery Method Nasal Cannula Oxygen Flow Rate 4 Narrative Exam Narrative: No recurrence of umbilical hernia, abdomen is obese and soft. RUQ pain related to drain. Decreased lung bases, dry cough. Repeat CT scan shows inflamed gall bladder, no radiologic findings of pancreatitis. Atelectasis in bilateral lower lungs. No undrained fluid in RUQ. Objective Labs Result Diagrams: 04/20/22 06:17 04/20/22 06:17 Labs: Laboratory Results - last 24 hr 04/19/22 04/20/22 04/20/22 11:49 06:17 06:17 WBC 11.2 H RBC 3.87 L Hgb 11.4 L Hct 34.1 L MCV 88.3 MCH 29.5 MCHC 33.4 RDW 14.6 Plt Count 215 Neut % (Auto) 80.0 H Lymph % (Auto) 10.0 L [place] % (Auto) 9.6 Eos % (Auto) 0.2 L Baso % (Auto) 0.2 Neut # (Auto) 9000 H Lymph # (Auto) 1100 [place] # (Auto) 1100 H Eos # (Auto) 0 Baso # (Auto) 0 Sodium 136 L Potassium 4.5 Chloride 101 Carbon Dioxide 29 BUN 12 Creatinine 1.14 Estimated GFR > 60 BUN/Creatinine Ratio 10.5 Glucose 117 H Calcium 8.1 L Total Bilirubin 1.1 AST 48 ALT 72 H Alkaline Phosphatase 224 H Total Protein 5.7 L Albumin 2.8 L Globulin 2.9 Albumin/Globulin Ratio 1.0 Lipase 29 D SARS-CoV-2 (PCR) Negative [facility] Medical History Anticoagulated Arthritis Atypical chest pain (~2014) AVNRT (AV ciro re-entry tachycardia) BPH (benign prostatic hyperplasia) Chronic anticoagulation Degenerative disc disease Elevated cholesterol Erectile dysfunction Former smoker Gallstone pancreatitis GERD (gastroesophageal reflux disease) History of tachycardia Hyperlipidemia Hypertension Impairment of balance Lumbar post-laminectomy syndrome Lumbar strain Morbid obesity Obesity Obstructive sleep apnea on CPAP Paroxysmal A-fib Shortness of breath Sinus congestion Spinal stenosis SVT (supraventricular tachycardia) Surgical History H/O cardiac radiofrequency ablation H/O nasal septoplasty (~2012) H/O right knee surgery History of appendectomy History of laminectomy History of lumbar fusion History of total knee arthroplasty S/P epidural steroid injection S/P foot surgery, right Status post cataract extraction of both eyes with insertion of intraocular lens Social History household members: spouse Smoking Status: Former smoker alcohol intake: current Assessment & Plan Post-op Postoperative Procedures: Procedures Operation Date: 04/19/22 13:45 Actual Procedure Side Surgeon p Diagnostic laparoscopy with cholecystotomy tube placement, incidental umbilical hernia repair Karen Milligan MD Postoperative day: 1 Postoperative status: doing well Postoperative status narrative: Poor pain control, anxiety and poor respiratory toilet. Postoperative plan narrative: Restart Xarelto, Cholecystostomy tube to remain a minimum of 6 weeks. Likely needs to revisit [facility] for repeat ERCP with stent. Will re evaluate need for second attempt to remove gallbladder once inflammation has resolved. Time Spent With Patient Time with patient: 25 - 35 minutes
--- NOTE | 2022-04-20 14:21 | CM.DANOTE ---
Pt is an 81 yo male, resident of [place], and admitted for Lap Thi. PCP: Unknown Payer: [employer] Reviewed chart, met w/patient at bedside to introduce role. Patient states he is indp at baseline, lives w/spouse and plans to return upon discharge but currently having chest pain and clearly not feeling well. Pt getting contrast towards getting a CT for possible further medical needs. Pt denies any hx of HH or SNF and was recently admitted and went to [facility] for ERCP transfer and then was able to d/c home with no needs and then admitted now for planned Lap Thi. No barriers identified at this time to patient's safe discharge home w/family to assist; close outpatient f/u recommended. Plan: SW to follow closely for chest pain r/o and any further identified discharge planning needs. CATRACHITO Ontiveros Discharge Planning/Care Management CM Discharge Assessment Start: 04/20/22 14:15 Freq: Status: Active Protocol: Document 04/20/22 14:15 BF (Rec: 04/20/22 14:17 BF [id number]) Discharge Planning Assessment Assigned [place] Custodian CATRACHITO Leach DPOA/Assigned Designee Name spouse [place] Contact Information [phone] Advance Directives? Yes Advance Directives on File No History Provided By Patient,Medical Record Has Patient been admitted in last 30 Yes days? Comment Recent transfer to [facility] for ERCP and return and d/c to home no needs and then return for plan of Lap Thi. Prior Living Arrangements House Household Members spouse Type of transporation used prior to Drives own vehicle admit Independent with ADL's Yes Is patient alert and oriented? Yes Caregiver for Another No Barriers to Discharge No Discharge Plan Home Transportation Arrangement Spouse to provide transport Referrals Initiated None needed Additional Comment r/o any HH needs Whiteboard Updated in Patient Room with Yes name and ext. # of [place] Custodian Review Status In Process Please Provide Date Initial DC 04/20/22 Assessment Was Performed Next Review Type Continued Stay Review
[2022-04-20] MEDS: levoFLOXacin 250 MG TABLET 750 MG PO (20:03)
[2022-04-20] MEDS: GABAPENTIN 300 MG CAPSULE PO (20:03)
[2022-04-20] MEDS: ATORVASTATIN 20 MG TABLET PO (20:04)
[2022-04-21 03:40] VITALS: BP 123/70; PULSE 69; RESP 20; TEMP 37; O2SAT 96
[2022-04-21] MEDS: ACETAMINOPHEN 325 MG TABLET 650 MG PO ×4 (05:16→23:28)
[2022-04-21] MEDS: PANTOPRAZOLE DR 20 MG TABLET PO ×2 (08:40→21:27)
[2022-04-21] MEDS: RIVAROXABAN 10 MG TABLET 20 MG PO (08:40)
[2022-04-21 08:41] VITALS: BP 137/71; PULSE 81
[2022-04-21] MEDS: METOPROLOL IR 25 MG TABLET PO ×2 (08:41→21:27)
[2022-04-21] MEDS: LOSARTAN 50 MG TABLET PO (08:41)
--- NOTE | 2022-04-21 09:09 | CM.DPC ---
DCP HH planning Per Surgeon, plan is now for pt to d/c with drain in place and will need to see how much progress the drain makes towards determining likely further surgical intervention in the future from his purulent gallbladder but pt not appropriate for further surgery at this time. PT eval for today and RT to assess for possible need of new home O2 and Surgeon feels HH RN and PT needed at discharge to follow for drain and wound care and strengthening. SW met bedside with pt and he confirms spouse will be bedside later this morning and aware he may d/c home today or tomorrow pending progress. SW discussed HH services and pt agreeable with HH and denies any hx of HH and provied HH Choice list and no preference. SW made referral to [facility] based on Vendor Calendar and F2F completed and faxed along with HH orders. Plan: SW to follow closely for possible d/c home today vs tomorrow pending progress, PT eval, and RT assess for home O2. CATRACHITO Ontiveros
[2022-04-21 09:41] VITALS: BP 137/70; PULSE 82; RESP 22; TEMP 36; O2SAT 93
--- NOTE | 2022-04-21 09:46 | P.PN_ITS ---
Subjective Subjective Date Patient Seen: 04/21/22 Time Patient Seen: 08:30 Interval history: Patient feels better Exam Vital Signs (past 8 hours): - 04/21/22 03:40 04/21/22 07:20 04/21/22 08:41 Temperature 98.6 F Pulse Rate 69 81 Respiratory Rate 20 Blood Pressure 123/70 137/71 Pulse Oximetry 96 Oxygen Delivery Method Nasal Cannula Oxygen Flow Rate 4 04/21/22 09:41 Temperature 96.8 F L Pulse Rate 82 Respiratory Rate 22 Blood Pressure 137/70 Pulse Oximetry 93 Oxygen Delivery Method Oxygen Flow Rate 0 Oxygen Delivery Method Nasal Cannula Oxygen Flow Rate 0 Narrative Exam Narrative: better pain control, drain is 80 ml/24 hr. dark bile. abdomen benign. Objective Labs Result Diagrams: 04/20/22 06:17 04/20/22 06:17 [facility] Medical History Anticoagulated Arthritis Atypical chest pain (~2014) AVNRT (AV ciro re-entry tachycardia) BPH (benign prostatic hyperplasia) Chronic anticoagulation Degenerative disc disease Elevated cholesterol Erectile dysfunction Former smoker Gallstone pancreatitis GERD (gastroesophageal reflux disease) History of tachycardia Hyperlipidemia Hypertension Impairment of balance Lumbar post-laminectomy syndrome Lumbar strain Morbid obesity Obesity Obstructive sleep apnea on CPAP Paroxysmal A-fib Shortness of breath Sinus congestion Spinal stenosis SVT (supraventricular tachycardia) Surgical History H/O cardiac radiofrequency ablation H/O nasal septoplasty (~2012) H/O right knee surgery History of appendectomy History of laminectomy History of lumbar fusion History of total knee arthroplasty S/P epidural steroid injection S/P foot surgery, right Status post cataract extraction of both eyes with insertion of intraocular lens Social History household members: spouse Smoking Status: Former smoker alcohol intake: current Assessment & Plan Post-op Postoperative Procedures: Procedures Operation Date: 04/19/22 13:45 Actual Procedure Side Surgeon p Diagnostic laparoscopy with cholecystotomy tube placement, incidental umbi lical hernia repair Karen Milligan MD Postoperative day: 2 Postoperative status: doing well Postoperative status narrative: Overall decondition. Breathing better with fentanyl patch. Bile in drain but low volume. Infection resolving Postoperative plan narrative: PT and social service consult for discharge 1-2 days with drain. Follow up 2-3 weeks. Keep strict diary of drain output. Time Spent With Patient Time with patient: 25 - 35 minutes
--- NOTE | 2022-04-21 11:35 | PT.IIE ---
Current Diagnoses Acute pancreatitis without necrosis or infection, unspecified (04/20/22) Surgery Performed Operation Date: 04/19/22 13:45 Actual Procedures p Diagnostic laparoscopy with cholecystotomy tube placement, incidental umbilical hernia repair - Karen Milligan MD Surgical History (Last Reviewed 04/14/22 @ 04:01 by JOURDAN Hartman) H/O cardiac radiofrequency ablation H/O nasal septoplasty (~2012) H/O right knee surgery History of appendectomy History of laminectomy History of lumbar fusion History of total knee arthroplasty S/P epidural steroid injection S/P foot surgery, right Status post cataract extraction of both eyes with insertion of intraocular lens Medical History (Last Reviewed 04/14/22 @ 04:01 by JOURDAN Hartman) Anticoagulated Arthritis Atypical chest pain (~2014) AVNRT (AV ciro re-entry tachycardia) BPH (benign prostatic hyperplasia) Chronic anticoagulation Degenerative disc disease Elevated cholesterol Erectile dysfunction Former smoker Gallstone pancreatitis GERD (gastroesophageal reflux disease) History of tachycardia Hyperlipidemia Hypertension Impairment of balance Lumbar post-laminectomy syndrome Lumbar strain Morbid obesity Obesity Obstructive sleep apnea on CPAP Paroxysmal A-fib Shortness of breath Sinus congestion Spinal stenosis SVT (supraventricular tachycardia) Physical Therapy Inpatient Evaluation/Re-Eval M1 PT/OT-IP Prior Functional Status Start: 04/21/22 12:30 Freq: NEEDED Status: Active Protocol: Document 04/21/22 11:35 AB ([facility] Medical Review Prior Functional Status Medical History Reviewed Yes Communication able to make needs known Mobility and Gait pt stated that he is independent with all mobilities and ambulation without AD Social History Household Members spouse Living Arrangements House Number of Floors (Floors) One Floor Number of Stairs To Enter/Railing? 1 step to enter Home Environment High Toilet,Walk in Shower Home Equipment Front Wheel Walker,Straight Cane M2 PT-IP Current Condition Start: 04/21/22 12:30 Freq: NEEDED Status: Active Protocol: Document 04/21/22 11:35 AB (Rec: 04/21/22 [facility]:05 [facility] Physical Therapy Current Condition Current Condition Evaluation Date 04/21/22 Treatment Diagnosis s/p lap cholecystectomy; difficulty in walking Onset Date 04/20/22 M3 PT-IP Subjective Start: 04/21/22 12:30 Freq: NEEDED Status: Active Protocol: Document 04/21/22 11:35 AB (Rec: 04/21/22 13:05 [email or web address]) Subjective Physical Therapy Visit Type Type Initial Evaluation Visit Start Time 11:35 Visit Stop Time 12:15 Total Visit Minutes 40 Number of SENIOR DATA MODELER Visits 0 Physical Therapy Visit Comments Patient Comments agreeable to do PT Therapy Pain Assessment Pain When Pain Assessed At Rest Pain Present Pain Present Pain Reported Location abd Intensity 2 Scale Used Numeric (0 - 10) Pain Management Techniques Distraction,Modification of Treatment,Re-positioning, Timing of Activity with Medications M4 PT-IP Mobility and Gait Start: 04/21/22 12:30 Freq: NEEDED Status: Active Protocol: Document 04/21/22 11:35 AB (Rec: 04/21/22 13:05 [email or web address]) PT-Bed Mobility Assessment Supine to Sit Supine to Sit Standby Assistance Sit to Supine Sit to Supine Standby Assistance PT-Transfer Assessment Sit to and From Stand Sit to and from Stand Standby Assistance,1 Person Assistance,Use of Upper Extremities Equipment Transfer Assistive Device Gait Belt,Front Wheeled Walker Orthotic/Prosthetic Devices or Brace: No Transfers Transfer Destination Bed,Chair Transfer Technique ambulated Transfer Ability Level of Assist Standby Assistance,1 Person Assistance,Use of Upper Extremities Comments Mobility Comments pt sitting on the chair. BP: 116/57. O2 sat at RA 90% with 2L/min O2: 95%. completed sit to stand SBA and ambulated in room using FWW SBA to occasionally CGA ~ 25 ft. pt sat on EOB. (+) SOB. O2 sat decreased to 79% with O2 on. cued for deep breathing. O2 sat increased to 90% in >2 min. informed nurse pt completed log roll sit to supine SBA with HOB elevated. pt stated that HOB at home is set up to be elevated. pt completed sit to stand from EOB SBA and step transfer to chair using FWW SBA. positioend pt on the chair. call ight and table placed within reach. Gait Assessment Gait Gait Assistance Required: Standby Assistance,Contact Guard Assist Distance (Feet) 25 Able to Maintain Weight Bearing Status Yes During Gait Assistive Devices Assistive Device Gait Belt,Front Wheeled Walker Orthotic/Prosthetic Devices or Brace: No Gait Deviations General Gait Pattern Decreased Stride Length, Decreased Feet Clearance,Step- to Gait Factors Limiting Gait Function Factors Limiting Gait Function Decreased Activity Tolerance, Decreased Strength,Pain, Respiratory Distress PT-Balance Assessment Sitting Balance and Reactions Static Sitting Balance Ability Good Dynamic Sitting Balance Ability Good Standing Balance and Reactions Static Standing Balance Ability Fair Dynamic Standing Balance Ability Fair Device Used FWW M5 PT-IP Objective Assessments Start: 04/21/22 12:30 Freq: NEEDED Status: Active Protocol: Document 04/21/22 11:35 AB (Rec: 04/21/22 13:05 AB [email or web address]) Orientation Orientation/Cognition Level of Alertness Alert Orientation Name,Place,Situation Language Function Ability No Deficits Noted Safety Awareness Understands Safety Issues Memory Description No Deficits Noted Gross Range of Motion Lower Extremity ROM Assessment Within Functional Limits Strength Lower Extremity Strength Assessment Within Functional Limits Coordination Assessment Gross Coordination Gross Coordination WNL Muscle Tone Muscle Tone WNL Yes M6 PT-IP Treatment Start: 04/21/22 12:30 Freq: NEEDED Status: Active Protocol: Document 04/21/22 11:35 AB (Rec: 04/21/22 13:05 AB [email or web address]) Physical Therapy Treatment Education Education Provided Safety M7 PT-IP Assessment and Plan Start: 04/21/22 12:30 Freq: NEEDED Status: Active Protocol: Document 04/21/22 11:35 AB (Rec: 04/21/22 13:05 AB [email or web address]) PT Summary Assessment and Plan Potential Rehabilitation Potential Fair Status of Condition at Evaluation Evolving Summary Impairments Pain,ROM,Strength,Balance, Coordination,Sensation,Tone, Cognition,Bed Mobility, Transfers,Gait,Activity Tolerance Assessment Summary pt requiring SBA to CGA with mobility using FWW and has decrease activity tolerance affecting mobility independence with decrease to 79% O2 sat after ambulation. pt will have his spouse to assist him at home. will continue to assess progress. Goals Bed Mobility Goal Independent Transfer Goal Independent,Front Wheeled Walker Gait Goal Independent,Front Wheel Walker Gait Distance 100 Other Goals improve transfers and ambulation without AD 200 ft mod I up/down 1 step using FWW/ without AD SBA Days to Meet Goals 10 Frequency of Treatment Frequency Of Treatment Once a Day Treatment Plan Physical Therapy Treatment Plan Bed Mobility Training,Transfer Training,Gait Training, Therapeutic Exercise,Balance Retraining,Post Op Education, Discharge Planning,Hot or Cold Pack,Neuromuscular Re-ed, Coordination Retraining,Manual Therapy Precautions Abdominal Surgery Precautions Log Roll,Lifting Restrictions, Gait Belt above Incisional Area Recommendations To Nursing Amount of Assist Needed 1 Person Assist Discharge Recommendations PT Discharge Recommendations Home with Assistance,Home Health Transportation Needs at Discharge Private Vehicle
[2022-04-21 13:00] VITALS: BP 115/71; PULSE 81; RESP 22; TEMP 36; O2SAT 92
[2022-04-21] MEDS: MELOXICAM 7.5 MG TABLET 20 MG PO (16:44)
[2022-04-21] MEDS: ONDANSETRON 4 MG/2 ML INJ IV (17:07)
[2022-04-21 21:20] VITALS: BP 109/65; PULSE 84; RESP 20; TEMP 37.5; O2SAT 93
[2022-04-21] MEDS: levoFLOXacin 250 MG TABLET 750 MG PO (21:27)
[2022-04-21] MEDS: GABAPENTIN 300 MG CAPSULE PO (21:27)
[2022-04-21] MEDS: ATORVASTATIN 20 MG TABLET PO (21:27)
[2022-04-22 00:10] VITALS: BP 126/73; PULSE 67; RESP 18; TEMP 36.8; O2SAT 97
[2022-04-22 04:30] VITALS: BP 129/69; PULSE 69; RESP 18; TEMP 36.6; O2SAT 95
[2022-04-22] MEDS: ACETAMINOPHEN 325 MG TABLET 650 MG PO ×4 (05:12→23:16)
[2022-04-22 05:41] LABS: Add Manual Diff / Slide Review NO; Basophils Absolute Auto 0 /uL (0-100); Basophils Percent Auto 0.3 % (0-2); Eosinophils Absolute Auto 200 /uL (0-450); Eosinophils Percent Auto 2.4 % (2-4); Hematocrit 31.4 % (41-53); Hemoglobin 10.6 g/dL (13.5-17.5); Lymphocytes Absolute Auto 1100 /uL (1100-4500); Lymphocytes Percent Auto 13.1 % (25-40); Mean Corpuscular HGB Conc 33.6 % (30-36); Mean Corpuscular Hemoglobin 29.7 PG (26-34); Mean Corpuscular Volume 88.3 fL (80-100); Monocytes Absolute Auto 700 /uL (0-900); Neutrophils Absolute Auto 6100 /uL (1500-7000); Neutrophils Percent Auto 75.2 % (50-75); Platelet Count 189 X10^3/uL (150-400); Red Blood Cell Count 3.56 X10^6/uL (4.5-5.9); Red Cell Distribution Width 14.5 % (11.6-14.8); White Blood Cell Count 8.1 X10^3/uL (4.5-11.0)
[2022-04-22 05:48] LABS: Alanine Aminotransferase 39 IU/L (<50); Albumin 2.5 g/dL (3.5-5.0); Albumin Globulin Ratio 0.9 (1.0-2.8); Alkaline Phosphatase 174 U/L (38-126); Aspartate Aminotransferase 32 IU/L (17-59); BUN Creatinine Ratio 9.6 (6-22); Bilirubin Total 0.7 mg/dL (0.2-1.3); Blood Urea Nitrogen 11 mg/dL (9-20); Carbon Dioxide 29 mmol/L (22-32); Chloride 102 mmol/L (98-107); Estimated Glomerular Filt Rate > 60 mL/min (>60); Globulin 2.8 g/dL (1.7-4.1); Glucose 100 mg/dL (80-110); HEMOLYSIS < 15 (0-50); Sodium 134 mmol/L (137-145); Total Protein 5.3 g/dL (6.3-8.2)
[2022-04-22 06:02] LABS: Potassium 4.1 mmol/L (3.4-5.1)
[2022-04-22 07:50] VITALS: BP 114/68; PULSE 84; RESP 20; TEMP 36.3; O2SAT 94
[2022-04-22 08:23] VITALS: BP 114/68; PULSE 75
[2022-04-22] MEDS: RIVAROXABAN 10 MG TABLET 20 MG PO (08:23)
[2022-04-22] MEDS: METOPROLOL IR 25 MG TABLET PO ×2 (08:23→20:54)
[2022-04-22] MEDS: LOSARTAN 50 MG TABLET PO (08:23)
[2022-04-22] MEDS: PANTOPRAZOLE DR 20 MG TABLET PO ×2 (08:24→20:54)
[2022-04-22 13:05] VITALS: BP 106/60; PULSE 75; RESP 18; TEMP 36.4; O2SAT 93
[2022-04-22] MEDS: ONDANSETRON 4 MG ODT SL (13:06)
--- NOTE | 2022-04-22 15:47 | OT.IPNOTE ---
Touched base with pt and spouse and only question was for showering needs and suggested best to cover the drain and have use of shower chair for safety in the shower. Pt's states good understanding for all OT needs and therefore no other OT needs needed at this time. NO charge and discharge OT eval orders.
--- NOTE | 2022-04-22 16:01 | PT.IPTN ---
Current Diagnoses Acute pancreatitis without necrosis or infection, unspecified (04/20/22) Surgery Performed Operation Date: 04/19/22 13:45 Actual Procedures p Diagnostic laparoscopy with cholecystotomy tube placement, incidental umbilical hernia repair - Karen Milligan MD Physical Therapy Treatment Note M2 PT-IP Current Condition Start: 04/21/22 12:30 Freq: NEEDED Status: Active Protocol: Document 04/21/22 11:35 AB (Rec: 04/21/22 13:05 AB [email or web address]) Physical Therapy Current Condition Current Condition Evaluation Date 04/21/22 Treatment Diagnosis s/p lap cholecystectomy; difficulty in walking Onset Date 04/20/22 M3 PT-IP Subjective Start: 04/21/22 12:30 Freq: NEEDED Status: Active Protocol: Document 04/22/22 09:42 AMB (Rec: 04/22/22 09:48 AMB [id number]) Subjective Physical Therapy Visit Type Type Treatment Note Visit Start Time 09:10 Visit Stop Time 09:30 Total Visit Minutes 20 Physical Therapy Visit Comments Patient Comments agreeable to do PT M4 PT-IP Mobility and Gait Start: 04/21/22 12:30 Freq: NEEDED Status: Active Protocol: Document 04/22/22 09:42 AMB (Rec: 04/22/22 09:48 AMB [id number]) PT-Transfer Assessment Sit to and From Stand Sit to and from Stand Standby Assistance,1 Person Assistance,Use of Upper Extremities Equipment Transfer Assistive Device Gait Belt,Front Wheeled Walker Orthotic/Prosthetic Devices or Brace: No Transfers Transfer Destination Bed,Chair Transfer Technique ambulated Transfer Ability Level of Assist Standby Assistance,1 Person Assistance,Use of Upper Extremities Comments Mobility Comments Pt in chair on RA O2 93. Ambulated around room with cues for breathing, FWW SBA 60 ' with 3 standing rest breaks for breathing. O2 decreased to 87 at lowest, came back up to 90 with standing rest breaks. Gait Assessment Gait Gait Assistance Required: Standby Assistance Distance (Feet) 25 Able to Maintain Weight Bearing Status Yes During Gait Assistive Devices Assistive Device Gait Belt,Front Wheeled Walker Orthotic/Prosthetic Devices or Brace: No Gait Deviations General Gait Pattern Decreased Stride Length, Decreased Feet Clearance,Step- to Gait Factors Limiting Gait Function Factors Limiting Gait Function Decreased Activity Tolerance, Decreased Strength,Pain, Respiratory Distress PT-Balance Assessment Sitting Balance and Reactions Static Sitting Balance Ability Good Dynamic Sitting Balance Ability Good Standing Balance and Reactions Static Standing Balance Ability Fair Dynamic Standing Balance Ability Fair Device Used FWW M5 PT-IP Objective Assessments Start: 04/21/22 12:30 Freq: NEEDED Status: Active Protocol: Document 04/21/22 11:35 AB (Rec: 04/21/22 13:05 AB [email or web address]) Orientation Orientation/Cognition Level of Alertness Alert Orientation Name,Place,Situation Language Function Ability No Deficits Noted Safety Awareness Understands Safety Issues Memory Description No Deficits Noted Gross Range of Motion Lower Extremity ROM Assessment Within Functional Limits Strength Lower Extremity Strength Assessment Within Functional Limits Coordination Assessment Gross Coordination Gross Coordination WNL Muscle Tone Muscle Tone WNL Yes M6 PT-IP Treatment Start: 04/21/22 12:30 Freq: NEEDED Status: Active Protocol: Document 04/21/22 11:35 AB (Rec: 04/21/22 13:05 AB [email or web address]) Physical Therapy Treatment Education Education Provided Safety M7 PT-IP Assessment and Plan Start: 04/21/22 12:30 Freq: NEEDED Status: Active Protocol: Document 04/22/22 09:42 AMB (Rec: 04/22/22 09:48 AMB [id number]) PT Summary Assessment and Plan Summary Assessment Summary Sony was better able to tolerate ambulation today, but O2 does drop down with gait and does become SOB even with short distances (30'x3). Ambulated with FWW and SBA in room as pt did not want to wear a mask due to increased SOB to get out of room. Pt was on room air and seated was at 90- 94SpO2, which dropped down to at lowest 87%. Encouraged in standing rest breaks, pt feels that he has a small home and while he does endorse consistent SOB feels he could walk short distances at home. Pt would certainly benefit from home health once he is able to go home. Goals Bed Mobility Goal Independent Transfer Goal Independent,Front Wheeled Walker Gait Goal Independent,Front Wheel Walker Gait Distance 100 Other Goals improve transfers and ambulation without AD 200 ft mod I up/down 1 step using FWW/ without AD SBA Days to Meet Goals 10 Frequency of Treatment Frequency Of Treatment Once a Day Treatment Plan Physical Therapy Treatment Plan Bed Mobility Training,Transfer Training,Gait Training, Therapeutic Exercise,Balance Retraining,Post Op Education, Discharge Planning,Hot or Cold Pack,Neuromuscular Re-ed, Coordination Retraining,Manual Therapy Other Recommendations and Next Treatment Gait tolerance with SOB/ pt Focus states he is able to enter home without a stair, but may need step training if needs to enter through other door that has one step. Precautions Abdominal Surgery Precautions Log Roll,Lifting Restrictions, Gait Belt above Incisional Area Recommendations To Nursing Amount of Assist Needed 1 Person Assist Discharge Recommendations PT Discharge Recommendations Home with Assistance,Home Health Transportation Needs at Discharge Private Vehicle
--- NOTE | 2022-04-22 17:11 | P.PN_ITS ---
Subjective Subjective Date Patient Seen: 04/22/22 Time Patient Seen: 16:00 Interval history: Patient states he is feeling very nauseous and distended. He ate some regular food this afternoon for lunch and then felt that regurgitate. He is not comfortable managing the drain at home either. He has just been seen by PT and really was just out of bed walking for the 1st time this evening. Exam Vital Signs (past 8 hours): - 04/22/22 13:05 Temperature 97.5 F L Pulse Rate 75 Respiratory Rate 18 Blood Pressure 106/60 Pulse Oximetry 93 Oxygen Flow Rate 0 Oxygen Delivery Method Nasal Cannula,CPAP Oxygen Flow Rate 0 Narrative Exam Narrative: He is a pleasant gentleman. Morbidly obese. His abdomen is distended and tympanitic. There is a drain in place in the right abdomen draining dark green bilious material. The wounds are clean dry and intact. There is some ecchymosis within normal limits around the umbilical wound. Resp Effort & Inspection: normal respiratory effort and able to speak in complete sentences Objective Labs Result Diagrams: 04/22/22 04:52 04/22/22 04:52 Labs: Laboratory Results - last 24 hr 04/22/22 04/22/22 04:52 04:52 WBC 8.1 RBC 3.56 L Hgb 10.6 L Hct 31.4 L MCV 88.3 MCH 29.7 MCHC 33.6 RDW 14.5 Plt Count 189 Neut % (Auto) 75.2 H Lymph % (Auto) 13.1 L [place] % (Auto) 9.0 Eos % (Auto) 2.4 Baso % (Auto) 0.3 Neut # (Auto) 6100 Lymph # (Auto) 1100 [place] # (Auto) 700 Eos # (Auto) 200 Baso # (Auto) 0 Sodium 134 L Potassium 4.1 Chloride 102 Carbon Dioxide 29 BUN 11 Creatinine 1.14 Estimated GFR > 60 BUN/Creatinine Ratio 9.6 Glucose 100 Calcium 8.0 L Total Bilirubin 0.7 AST 32 ALT 39 Alkaline Phosphatase 174 H Total Protein 5.3 L Albumin 2.5 L Globulin 2.8 Albumin/Globulin Ratio 0.9 L [facility] Medical History Anticoagulated Arthritis Atypical chest pain (~2014) AVNRT (AV ciro re-entry tachycardia) BPH (benign prostatic hyperplasia) Chronic anticoagulation Degenerative disc disease Elevated cholesterol Erectile dysfunction Former smoker Gallstone pancreatitis GERD (gastroesophageal reflux disease) History of tachycardia Hyperlipidemia Hypertension Impairment of balance Lumbar post-laminectomy syndrome Lumbar strain Morbid obesity Obesity Obstructive sleep apnea on CPAP Paroxysmal A-fib Shortness of breath Sinus congestion Spinal stenosis SVT (supraventricular tachycardia) Surgical History H/O cardiac radiofrequency ablation H/O nasal septoplasty (~2012) H/O right knee surgery History of appendectomy History of laminectomy History of lumbar fusion History of total knee arthroplasty S/P epidural steroid injection S/P foot surgery, right Status post cataract extraction of both eyes with insertion of intraocular lens Social History household members: spouse Smoking Status: Former smoker alcohol intake: current Assessment & Plan Assessment and plan (1) Postoperative nausea: Status: Acute Assessment & Plan narrative: Patient has not tolerated a regular diet he is continuing to feel nauseated and distended. It may be that he is developing some postoperative ileus. Overall physical therapy needs to clear him for home and I just do not think he is ready tonight. Hopefully in the morning he will feel better with some mobilization and may tolerate food in the morning. His labs look better today leukocytosis is improved. I will plan to order any labs for the morning unless there is a change overnight and the patient feels less well. Hopefully the nausea will improve and he can be discharged home tomorrow. The plan is to continue the drain in place for 6 weeks, he will follow up with Dr. Milligan in the office to plan the next steps. Time Spent With Patient Critical Care time: I spent a total of [] minutes of critical care time on this patient's care today; this time is exclusive of procedural time.
[2022-04-22 20:01] VITALS: BP 130/76; PULSE 82; RESP 20; TEMP 36.2; O2SAT 98
[2022-04-22] MEDS: GABAPENTIN 300 MG CAPSULE PO (20:54)
[2022-04-22] MEDS: ATORVASTATIN 20 MG TABLET PO (20:54)
[2022-04-22] MEDS: levoFLOXacin 250 MG TABLET 750 MG PO (20:54)
[2022-04-23 05:26] VITALS: BP 130/70; PULSE 73; RESP 19; TEMP 36.2; O2SAT 96
[2022-04-23] MEDS: ACETAMINOPHEN 325 MG TABLET 650 MG PO ×2 (05:29→10:53)
--- NOTE | 2022-04-23 08:29 | PC.NURSE ---
Addendum entered by Sanaz Belcher R.N. 04/23/22 10:31: Patient states that he has this sob at home and this is not new for him. He would like to go home today. Original Note: Assess- Patient is alert and oriented x4, he is large with a rotund abdomen. Patient has 4 small incisions and abraham drain placed. He will go home with this and need some teaching on how to empty and record output. Patient has 3+ pitting edema to bilateral legs, he is steady on his feet and a stand by assist. No sob in bed at rest, but when getting up out of bed and ambulating to the chair he has significant sob. Checked O2 saturation and 93%. His sob is gone after sitting back down in the chair, patient eating breakfast now and has a good appetite.
[2022-04-23] MEDS: METOPROLOL IR 25 MG TABLET PO (08:46)
[2022-04-23] MEDS: LOSARTAN 50 MG TABLET PO (08:46)
[2022-04-23] MEDS: PANTOPRAZOLE DR 20 MG TABLET PO (08:46)
[2022-04-23] MEDS: RIVAROXABAN 10 MG TABLET 20 MG PO (08:46)
[2022-04-23] MEDS: fentaNYL 50 MCG/PATCH TOP (10:53)
--- NOTE | 2022-04-23 11:25 | PT.IPTN ---
Current Diagnoses Acute pancreatitis without necrosis or infection, unspecified (04/20/22) Nausea (04/20/22) Other specified postprocedural states (04/20/22) Surgery Performed Operation Date: 04/19/22 13:45 Actual Procedures p Diagnostic laparoscopy with cholecystotomy tube placement, incidental umbilical hernia repair - Karen MD Srini Physical Therapy Treatment Note M2 PT-IP Current Condition Start: 04/21/22 12:30 Freq: NEEDED Status: Active Protocol: Document 04/21/22 11:35 AB (Rec: 04/21/22 13:05 AB [email or web address]) Physical Therapy Current Condition Current Condition Evaluation Date 04/21/22 Treatment Diagnosis s/p lap cholecystectomy; difficulty in walking Onset Date 04/20/22 M3 PT-IP Subjective Start: 04/21/22 12:30 Freq: NEEDED Status: Active Protocol: Document 04/23/22 11:25 AB (Rec: 04/23/22 12:43 AB [email or web address]) Subjective Physical Therapy Visit Type Type Treatment Note Visit Start Time 11:25 Visit Stop Time 11:55 Total Visit Minutes 30 Number of SKIN CARE SPECIALIST Visits 0 Physical Therapy Visit Comments Patient Comments agreeable to do PT M4 PT-IP Mobility and Gait Start: 04/21/22 12:30 Freq: NEEDED Status: Active Protocol: Document 04/23/22 11:25 AB (Rec: 04/23/22 12:43 AB [email or web address]) PT-Bed Mobility Assessment Supine to Sit Supine to Sit Minimal Assistance,1 Person Assistance,Head of Bed Elevated PT-Transfer Assessment Sit to and From Stand Sit to and from Stand Minimal Assistance Equipment Transfer Assistive Device Gait Belt,Front Wheeled Walker Orthotic/Prosthetic Devices or Brace: No Transfers Transfer Destination Chair Transfer Technique ambulated Transfer Ability Level of Assist Standby Assistance,Use of Upper Extremities Comments Mobility Comments pt on RA. O2 sat: 93%. completed supine to sit min A. Pt elevated HOB up. completed sit to stand min A. needs assst to steady FWW for initial standing. pt ambulated in room with FWW SBA ~ 75 ft with standing rest breaks x 2. O2 sat 87-91% during mobility. pt sat on the chair. Set up for lunch. call light and table placed within reach. Gait Assessment Gait Gait Assistance Required: Standby Assistance,1 Person Assist Distance (Feet) 75 Able to Maintain Weight Bearing Status Yes During Gait Assistive Devices Assistive Device Gait Belt,Front Wheeled Walker Orthotic/Prosthetic Devices or Brace: No Gait Deviations General Gait Pattern Antalgic,Decreased Stride Length,Decreased Feet Clearance,Step-to Gait,Wide Based Gait Factors Limiting Gait Function Factors Limiting Gait Function Decreased Activity Tolerance, Decreased Strength,Limited Range of Motion,Pain,Poor Balance,Respiratory Distress M5 PT-IP Objective Assessments Start: 04/21/22 12:30 Freq: NEEDED Status: Active Protocol: Document 04/21/22 11:35 AB (Rec: 04/21/22 13:05 AB [email or web address]) Orientation Orientation/Cognition Level of Alertness Alert Orientation Name,Place,Situation Language Function Ability No Deficits Noted Safety Awareness Understands Safety Issues Memory Description No Deficits Noted Gross Range of Motion Lower Extremity ROM Assessment Within Functional Limits Strength Lower Extremity Strength Assessment Within Functional Limits Coordination Assessment Gross Coordination Gross Coordination WNL Muscle Tone Muscle Tone WNL Yes M6 PT-IP Treatment Start: 04/21/22 12:30 Freq: NEEDED Status: Active Protocol: Document 04/23/22 11:25 AB (Rec: 04/23/22 12:43 [email or web address] Physical Therapy Treatment Education Education Provided Safety M7 PT-IP Assessment and Plan Start: 04/21/22 12:30 Freq: NEEDED Status: Active Protocol: Document 04/23/22 11:25 AB (Rec: 04/23/22 12:43 AB [email or web address]) PT Summary Assessment and Plan Potential Rehabilitation Potential Fair Summary Impairments Pain,ROM,Strength,Balance, Coordination,Sensation,Tone, Cognition,Bed Mobility, Transfers,Gait,Activity Tolerance Progress Towards Goals Slow Progress due to Activity Tolerance Assessment Summary pt improving slowly requiring SBA with ambulation using FWW. pt will have his spouse to assist him at home. O2 sat maintained: 87-91% with mobility. pt may go home when medically stable. Goals Bed Mobility Goal Independent Transfer Goal Independent,Front Wheeled Walker Gait Goal Independent,Front Wheel Walker Gait Distance 100 Other Goals improve transfers and ambulation without AD 200 ft mod I up/down 1 step using FWW/ without AD SBA Days to Meet Goals 10 Frequency of Treatment Frequency Of Treatment Once a Day Treatment Plan Physical Therapy Treatment Plan Bed Mobility Training,Transfer Training,Gait Training, Therapeutic Exercise,Balance Retraining,Post Op Education, Discharge Planning,Hot or Cold Pack,Neuromuscular Re-ed, Coordination Retraining,Manual Therapy Precautions Abdominal Surgery Precautions Log Roll,Lifting Restrictions, Gait Belt above Incisional Area Recommendations To Nursing Amount of Assist Needed 1 Person Assist Discharge Recommendations PT Discharge Recommendations Home with Assistance,Home Health Transportation Needs at Discharge Private Vehicle
[2022-04-23 14:45] VITALS: BP 147/110; PULSE 74; RESP 24; TEMP 36.2; O2SAT 98
--- NOTE | 2022-04-23 16:55 | PM.DS.1 ---
History of Present Illness History of Present Illness Chief complaint: LAP MARTA *OPB* Discharge Providers Provider Date of admission: 04/20/22 15:00 Discharge Date: 04/23/22 Primary care physician: Blaze Hurley MD Consults: 04/21/22 07:50 Consult to SPORTS MANAGEMENT PROFESSOR - [employer] Routine Comment: visiting nurse for drain 04/21/22 07:51 Consult to Physical Therapy Evaluate & Treat Comment: mobilization Physician Instructions: Evaluate and Treat 04/21/22 09:00 Consult to Home Health Routine Comment: Lap Marta, drain care, spinal stenosis Reason For Exam: Set up HH RN/PT for home use 04/22/22 11:53 Consult to Occupational Therapy Evaluate & Treat Comment: Physician Instructions: Evaluate and treat Discharge provider: Ramiro Acevedo MD Summary Hospital Course Discharge Diagnosis: Acute cholecystitis Hospital Course: The patient underwent a diagnostic laparoscopy by Dr. Milligan. Please see op note for details. He gradually improved and once his pain and nausea were controlled he was discharged home. He was instructed to continue to empty the drain and measure the daily output. Exam Vital Signs (past 8 hours): - 04/23/22 14:45 Temperature 97.1 F L Pulse Rate 74 Respiratory Rate 24 Blood Pressure 147/110 H Pulse Oximetry 98 Oxygen Flow Rate 0 Oxygen Delivery Method Nasal Cannula,CPAP Oxygen Flow Rate 0 Objective Labs Result Diagrams: 04/22/22 04:52 04/22/22 04:52 [facility] Medical History Anticoagulated Arthritis Atypical chest pain (~2014) AVNRT (AV ciro re-entry tachycardia) BPH (benign prostatic hyperplasia) Chronic anticoagulation Degenerative disc disease Elevated cholesterol Erectile dysfunction Former smoker Gallstone pancreatitis GERD (gastroesophageal reflux disease) History of tachycardia Hyperlipidemia Hypertension Impairment of balance Lumbar post-laminectomy syndrome Lumbar strain Morbid obesity Obesity Obstructive sleep apnea on CPAP Paroxysmal A-fib Shortness of breath Sinus congestion Spinal stenosis SVT (supraventricular tachycardia) Surgical History H/O cardiac radiofrequency ablation H/O nasal septoplasty (~2012) H/O right knee surgery History of appendectomy History of laminectomy History of lumbar fusion History of total knee arthroplasty S/P epidural steroid injection S/P foot surgery, right Status post cataract extraction of both eyes with insertion of intraocular lens Social History household members: spouse Smoking Status: Former smoker alcohol intake: current Discharge Plan Discharge Plan Patient Disposition: Home Provider Discharge Comment: Keep daily drain output diary. Expect to have the drain as long as 6-8 weeks. Discharge orders & Medications Prescriptions: New fentanyl 50 mcg/hr Patch 72 Hour 50 mcg topical Q72H Qty: 5 0RF Continued atorvastatin 20 mg Tablet 20 mg PO BEDTIME meloxicam 15 mg Tablet 20 mg PO DAILY PRN (Reason: Pain) metoprolol tartrate 25 mg Tablet 25 mg PO BID omeprazole 20 mg Tablet,Delayed Release (Dr/Ec) 20 mg PO BID Xarelto 20 mg Tablet 20 mg PO QPM nystatin-triamcinolone 100,000-0.1 unit/gram-% Ointment 1 applic TOPICAL BID Rx Instructions: To affected areas losartan 50 mg tablet 50 mg PO DAILY Discontinued levofloxacin 750 mg tablet 750 mg PO DAILY Qty: 7 0RF metronidazole 500 mg tablet 500 mg PO Q8H Qty: 21 0RF Follow up/Referrals: Karen Milligan MD [Physician] - Blaze Hurley MD [Primary Care Provider] - Diet/Activity/Treatments Diet: Diet as Tolerated Skin/Wound/Dressing Care Report to your healthcare provider any signs of infection, such as:: chills, fever, night sweats, increased pain, unusual drainage and unusual redness Visit Report/Discharge Packet Instructions: [facility]: Wound Care Stand Alone Forms: Patient Portal/API, Surgery Discharge Discharge Data Primary Care Provider: Blaze Hurley
--- NOTE | 2022-04-24 07:55 | CM.DPNOTE ---
DC Note- Late Entry Patient discharged yesterday after this CRM CONSULTANT left for the day. Faxed DC Summary to [facility] this morning alerting them that patient discharged home yesterday 04.23.22 Plan: DC home w/spouse, [facility] and close outpatient follow up JW
== END 2022-04-23 17:18 | disposition home or self-care (01) | DRG 417 ==
PROVIDERS: Admitting Provider Surgery; PCP Internal Medicine; Referring Provider Surgery; Visit Provider Surgery
PROC: 0FT44ZZ Resection of Gallbladder, Percutaneous Endoscopic Approach (ICD-10-PCS; CPT 47562; principal; 2022-04-19 13:45)
DX: K81.0 Acute cholecystitis (principal); K85.10 Biliary acute pancreatitis without necrosis or infection; Z68.41 Body mass index [BMI] 40.0-44.9, adult; K42.0 Umbilical hernia with obstruction, without gangrene; J44.9 Chronic obstructive pulmonary disease, unspecified; E66.01 Morbid (severe) obesity due to excess calories; R11.0 Nausea; R14.0 Abdominal distension (gaseous); E78.5 Hyperlipidemia, unspecified; I10 Essential (primary) hypertension; K21.9 Gastro-esophageal reflux disease without esophagitis; G47.33 Obstructive sleep apnea (adult) (pediatric); R06.02 Shortness of breath; Z86.711 Personal history of pulmonary embolism; Z79.01 Long term (current) use of anticoagulants; Z20.822 Contact with and (suspected) exposure to COVID-19; Z87.891 Personal history of nicotine dependence
CPT/HCPCS: 36415; 47490; 49587; 74177; 80053; 83690; 85025; 87635; 93005; 94618; 97116; 97162; 97530; C9803; J0690; J1170; J1644; J2405; J2704; Q9967

== ENCOUNTER → 2022-07-01 12:29 | Outpatient (CLI) | payer MEDICARE, OTHER, SELFPAY ==
[2022-04-19 18:25] VITALS: BMI 43.6
--- NOTE | 2022-07-01 12:32 | DI.CT.S_ITS ---
PROCEDURE: CT SINUS SCREEN WO CON INDICATIONS: Other forms of dyspnea;Chronic frontal sinusitis TECHNIQUE: Noncontrast 3.0 mm axial images acquired from the frontal sinuses to the mid-sella, with coronal and sagittal reformats. For radiation dose reduction, the following was used: automated exposure control, adjustment of mA and/or kV according to patient size. COMPARISON: [facility], CT, SINUS SCREEN WO CONTRAST, 07/03/2012, 10:50. FINDINGS: Image quality: Excellent. Maxillary Sinuses: No bony remodeling or destruction. 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 Mild inferior right maxillary sinus mucosal thickening measuring approximately 2 mm. Dependent left maxillary sinus mucosal thickening measuring 4 mm focally. Ethmoid Air Cells: Near complete ethmoidectomies. Sinuses are clear. Sphenoid Sinuses: No bony remodeling or destruction. Sinuses are clear. Frontal Sinuses: No bony remodeling or destruction. Sinuses are clear. Ostiomeatal Complexes: Ostiomeatal complexes have been resected. Miscellaneous: Visualized intra-orbital contents are normal. Middle nasal turbinates have been resected. Nasal passages are widely patent. No nasal septal deviation. IMPRESSION: 1. Extensive prior paranasal surgery. 2. Mild chronic sinusitis changes in the bilateral maxillary sinuses. Dictated by: Akash Alfonso M.D. on 07/01/2022 at 15:42 Approved by: Akash Alfonso M.D. on 07/01/2022 at 15:45
--- NOTE | 2022-07-01 12:32 | DI.CT.S_ITS ---
PROCEDURE: CT CHEST WO CON INDICATIONS: Other forms of dyspnea;Chronic frontal sinusitis TECHNIQUE: Noncontrast 5 mm thick sections acquired from the pulmonary apices to the posterior costophrenic angles. 1 mm lung window, 5 mm thick coronal and sagittal and 7 mm axial MIP reformats were then acquired. For radiation dose reduction, the following was used: automated exposure control, adjustment of mA and/or kV according to patient size. COMPARISON: [facility], CT, CT CHEST ABDOMEN PELVIS WITHOUT CONTRAST, 04/26/2022, 18:46. FINDINGS: Image quality: Excellent. Lungs and pleura: No acute airspace opacities. Peripheral interlobular septal thickening is noted predominantly within the mid and lower lungs bilaterally. There is mild early traction bronchiectasis in the dependent lung bases bilaterally. No pleural effusion or pneumothorax. Mediastinum: Heart size is normal. No pericardial effusion. No mediastinal adenopathy by size criteria. Thoracic aorta and central pulmonary arteries are normal in size. Esophagus is normal in caliber. No hiatal hernia. Bones and chest wall: No suspicious bony lesions. No vertebral body compression fractures. No axillary or supraclavicular adenopathy by size criteria. Thyroid gland is unremarkable . Abdomen: Inflammatory changes are only partially characterized in the gallbladder fossa. Some pneumobilia is noted. Limited visualization of the abdominal organs are otherwise unremarkable. IMPRESSION: 1. Peripheral interlobular septal thickening in a mid and lower lung distribution suggesting early fibrotic change. Early bronchiectasis is also noted within the dependent lung bases. Dictated by: Bela Centeno M.D. on 07/01/2022 at 13:13 Approved by: Bela Centeno M.D. on 07/01/2022 at 13:19
== END ==
PROVIDERS: PCP Internal Medicine; Referring Provider Internal Medicine Pulmonary Disease; Visit Provider Internal Medicine Pulmonary Disease
DX: J32.1 Chronic frontal sinusitis (principal); J32.0 Chronic maxillary sinusitis; R06.09 Other forms of dyspnea; F32.9 Major depressive disorder, single episode, unspecified; J47.9 Bronchiectasis, uncomplicated
CPT/HCPCS: 70486; 71250

== ENCOUNTER → 2022-08-29 13:55 | Outpatient (CLI) | payer MEDICARE, OTHER, SELFPAY ==
[2022-04-19 18:25] VITALS: BMI 43.6
--- NOTE | 2022-08-31 01:37 | DI.NM.S_ITS ---
DATE OF SERVICE: 08/29/2022 PROCEDURE PERFORMED: Pharmacologic vasodilator stress and rest myocardial perfusion imaging with gating to assess ejection fraction and regional wall motion. ORDERING PROVIDER: Mckenna Lockhart MD INDICATIONS: The patient is an 82-year-old morbidly obese male with COPD and exertional dyspnea. CARDIAC STRESS: Per protocol, 0.4 mg of regadenoson was infused with a normal hemodynamic response. He had no chest discomfort or other anginal symptoms. His resting ECG showed sinus rhythm with a left anterior fascicular block but normal ST segments. There were no significant ST-segment shifts or arrhythmias with stress. Per protocol, 25.0 millicuries of technetium-99m Myoview was injected and he was imaged 25 minutes later using a gated SPECT acquisition protocol. The day prior, while at rest, he had been injected with 26.2 millicuries of technetium- 99m Myoview was imaged 20 minutes later, again using a gated SPECT acquisition protocol. FINDINGS: 1. Raw data. There is fairly poor myocardial tracer uptake with probable significant diaphragmatic attenuation noted. Unfortunately, the patient was unable to lie prone to assess for diaphragmatic attentuation. The lung/heart ratio is normal at 0.35 with a normal TID ratio 0.99. 2. Quantitated gated SPECT: Post-stress ejection fraction is estimated at 75% without any focal wall motion abnormality and specifically the inferolateral wall appears to have fairly good contractility. The resting ejection fraction is 77% with a moderately increased resting end-diastolic volume of 152 mL. 3. Myocardial perfusion imaging: Post-stress supine images show mildly reduced tracer activity at the base of the inferior wall in a pattern consistent with diaphragmatic attenuation but a more significant, moderate perfusion defect in the mid and distal inferolateral segment extending out to the apex. While this could reflect diaphragmatic attenuation, the defect is more prominent than that typically seen for such. Unfortunately, no prone images are available to assess for diaphragmatic attenuation. The resting images show a similar perfusion pattern although with mildly improved perfusion in the inferior wall, particularly in the mid inferior wall with a more persistent perfusion defect in the distal inferolateral segment although still with some slight improvement. IMPRESSION: 1. Abnormal myocardial perfusion study although with reduced specificity because of significantly reduced image quality. 2. Partially reversible, but predominantly fixed, perfusion defect in the inferior and inferolateral wall, concerning for possible previous nontransmural infarction with mild ash-infarct ischemia although diaphragmatic attenuation could also be contributing to the perfusion defect. 3. Normal left ventricular systolic function with moderately increased left ventricular volumes. 4. No angina or ECG evidence of ischemia with pharmacologic vasodilator stress. Sony Cade - NATALIA/joi/alonzo doc#: [id number]/job#: [id number] dd: 08/30/2022 17:48:00 dt: 08/31/2022 01:17:00 DICTATING MD/COPIES TO: Chris Johnson MD; Mckenna Lockhart MD COPIES MNE: TOMY;
== END ==
PROVIDERS: PCP Internal Medicine; Referring Provider Internal Medicine Pulmonary Disease; Visit Provider Internal Medicine Pulmonary Disease
DX: R94.39 Abnormal result of other cardiovascular function study (principal); R06.09 Other forms of dyspnea; J44.9 Chronic obstructive pulmonary disease, unspecified; E66.01 Morbid (severe) obesity due to excess calories; Z68.41 Body mass index [BMI] 40.0-44.9, adult
CPT/HCPCS: 78452; 93017; A9502; J2785

== ENCOUNTER → 2024-10-17 08:41 | Outpatient (CLI) | payer MEDICARE, OTHER, SELFPAY ==
[2022-04-19 18:25] VITALS: BMI 43.6
== END ==
LOC: RESP 08:43
PROVIDERS: PCP Internal Medicine; Referring Provider Internal Medicine Pulmonary Disease; Visit Provider Internal Medicine Pulmonary Disease
DX: R06.02 Shortness of breath (principal)
CPT/HCPCS: 94618

== ENCOUNTER → 2024-10-22 12:36 | Outpatient (CLI) | payer MEDICARE, OTHER, SELFPAY ==
[2022-04-19 18:25] VITALS: BMI 43.6
--- NOTE | 2024-10-22 12:38 | DI.CT.S_ITS ---
PROCEDURE: CT CHEST WO CON INDICATIONS: CHEST nodules TECHNIQUE: Noncontrast 2.0-2.5 mm thick sections acquired from the pulmonary apices to the posterior costophrenic angles. 7 mm thick axial MIP and 5 mm coronal and sagittal reformats were then acquired. For radiation dose reduction, the following was used: automated exposure control, adjustment of mA and/or kV according to patient size. COMPARISON: None. FINDINGS: Image quality: Diagnostic. Lower Neck: No enlarged lymph nodes. Thyroid: No thyroid nodules which require sonographic follow up, per consensus guidelines. Axillae: No enlarged lymph nodes. Chest Wall: Unremarkable. Bones: No aggressive appearing bony lesions. Postfusion changes are noted in lower thoracic and lumbar spine. Lungs and Pleura: No pneumothorax or pleural effusions. Again noted is mild peripheral interlobular septal thickening predominantly in mid to lower lung zone slightly progressed compared to previous study concerning for pulmonary fibrosis. No suspicious pulmonary nodules. Central and peripheral airway is patent. Heart: Heart size is normal. No pericardial effusion. Thoracic Vessels: The aorta and pulmonary arteries demonstrate normal size. Mediastinum and Bertha: No enlarged lymph nodes. Esophagus: No wall thickening. No significant hiatal hernia. Upper Abdomen: Visualized upper abdomen solid organs and bowel loops appear normal. IMPRESSION: 1. Interval slight progressed of peripheral interlobular septal thickening in mid to lower lung zone concerning for pulmonary fibrosis. No suspicious pulmonary nodule is seen. No pleural effusion or pneumothorax. 2. No mediastinal or hilar lymphadenopathy. Fleischner Society criteria for SOLID lung nodule followup. Nodule size (mm)Low-risk patientHigh-risk patient<6 (single or multiple)No routine followup.Optional CT at 12 months. 6-8 (single or multiple)CT at 6-12 months, then optional CT at 18-24 mo.CT at 6-12 months, then CT at 18-24 months. >8 (single)CT at 3 months, PET-CT, or biopsy. Same as for low-risk pts. >8 (multiple)CT at 3-6 months, then optional CT at 18-24 mo.CT at 3-6 months, then CT at 18-24 months. Fleischner Society criteria for SUB-SOLID lung nodule followup. Solitary pure ground-glass nodules<6 mm (ground glass or part solid)No followup needed. 6 mm or larger (ground glass)CT at 6-12 months to confirm persistence, then CT every 2 years until 5 years.6 mm or larger (part solid)CT at 3-6 months to confirm persistence, then annual CT until 5 years if unchanged and solid component remains <6 mm. Multiple sub-solid nodules<6 mmCT at 3-6 months, then CT consider at 2 & 4 years for high risk patients. [address] at 3-6 months. Subsequent management based on most suspicious lesions. Recommendations do not apply to lung cancer screening, patients with immunosuppression, or patients with known primary cancer. Dictated by: Dc Hicks M.D. on 10/22/2024 at 16:24 Approved by: Dc Hicks M.D. on 10/22/2024 at 16:32
== END ==
PROVIDERS: PCP Internal Medicine; Referring Provider Internal Medicine Pulmonary Disease; Visit Provider Internal Medicine Pulmonary Disease
DX: R06.02 Shortness of breath (principal); R06.09 Other forms of dyspnea
CPT/HCPCS: 71250

== ENCOUNTER → 2024-10-23 13:19 | Outpatient (CLI) | payer MEDICARE, OTHER, SELFPAY ==
[2022-04-19 18:25] VITALS: BMI 43.6
== END ==
PROVIDERS: PCP Internal Medicine; Referring Provider Internal Medicine Pulmonary Disease; Visit Provider Internal Medicine Pulmonary Disease
DX: R06.02 Shortness of breath (principal); Z87.891 Personal history of nicotine dependence; R94.2 Abnormal results of pulmonary function studies
CPT/HCPCS: 94060; 94726; 94729

== ENCOUNTER 2024-11-09 17:28 | Emergency (ER) | payer MEDICARE, OTHER, SELFPAY ==
[2022-04-19 18:25] VITALS: BMI 43.6
[2024-11-09] VITALS (18 sets, daily range): BP systolic 110–175; BP diastolic 56–86; PULSE 75–113; RESP 24–34; TEMP 37.8–38.8; O2SAT 91–98; BMI 41.1
--- NOTE | 2024-11-09 18:05 | DI.RAD.S_ITS ---
PROCEDURE: XR CHEST 1V INDICATIONS: suspected sepsis TECHNIQUE: One view of the chest was acquired. COMPARISON: None. FINDINGS: Surgical changes and devices: None. Lungs and pleura: Lungs are clear. No pleural effusions or pneumothorax. Mediastinum: Mediastinal contours appear normal. Heart size is normal. Bones and chest wall: No suspicious bony lesions. Overlying soft tissues appear unremarkable. IMPRESSION: No acute cardiopulmonary abnormality is seen. Dictated by: Irene Duke M.D. on 11/09/2024 at 17:55 Approved by: Irene Duke M.D. on 11/09/2024 at 17:56
[2024-11-09 18:26] LABS: Add Manual Diff / Slide Review NO; Hematocrit 37.8 % (41-53); Hemoglobin 12.5 g/dL (13.5-17.5); Lymphocytes Absolute Auto 400 /uL (1100-4500); Mean Corpuscular HGB Conc 33.1 % (30-36); Mean Corpuscular Hemoglobin 28.5 PG (26-34); Mean Corpuscular Volume 86.2 fL (80-100); Platelet Count 190 X10^3/uL (150-400)
[2024-11-09 18:28] LABS: INR 1.3 (0.9-1.3); Prothrombin Time 15.2 SECONDS (9.4-12.5)
[2024-11-09 18:31] LABS: PTT Partial Thromboplastin Tim 30 SECONDS (25.1-36.5)
[2024-11-09 18:33] LABS: Alanine Aminotransferase 111 IU/L (<50); Albumin 3.4 g/dL (3.5-5.0); Albumin Globulin Ratio 1.1 (1.0-2.8); Alkaline Phosphatase 1086 U/L (38-126); Blood Urea Nitrogen 12 mg/dL (9-20); Calcium 8.7 mg/dL (8.4-10.2); Carbon Dioxide 26 mmol/L (22-32); Chloride 100 mmol/L (98-107); Estimated Glomerular Filt Rate > 60 mL/min (>60); Globulin 3.2 g/dL (1.7-4.1); Glucose 174 mg/dL (70-99); HEMOLYSIS < 15 (0-50); Lactate (Lactic Acid) 2.4 mmol/L (0.7-2.1); Lipase 55 U/L (23-300); Potassium 4.4 mmol/L (3.4-5.1); Sodium 133 mmol/L (137-145); Total Protein 6.6 g/dL (6.3-8.2)
--- NOTE | 2024-11-09 18:41 | EKG_ITS ---
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
--- NOTE | 2024-11-09 18:44 | DI.CT.S_ITS ---
PROCEDURE: CT ABDOMEN PELVIS W CON INDICATIONS: sepsis, elevated LFTs TECHNIQUE: After the administration of intravenous contrast, axial sections acquired from the lung bases to the pubic symphysis. Coronal and sagittal reformats were performed. For radiation dose reduction, the following was used: automated exposure control, adjustment of mA and/or kV according to patient size. COMPARISON: [facility], CT, CT ABDOMEN PELVIS WITHOUT CONTRAST, 05/20/2022, 14:01. FINDINGS: Image quality: Diagnostic. Lower Chest: No significant findings. ABDOMEN: Liver: No solid mass. There is poor visualization of the anterior segmental branch of the right portal vein. Gallbladder: There is ill-defined soft tissue density in the gallbladder fossa measuring approximately 8 x 4.7 cm, with possible hyperdense component centrally. This extends into the hilum. Biliary ducts: There is probably moderate intrahepatic biliary dilatation. There is trace pneumobilia. Pancreas: No ductal dilation. Spleen: Size is within normal limits. Adrenal Glands: No adrenal nodules. Kidneys and Ureters: No hydronephrosis. No solid mass. No complex renal cystic lesion which requires follow up. Stomach and Bowel: Normal colonic caliber, without significant wall thickening. Peritoneum: No abnormal intraperitoneal fluid. No free air. Ventral Wall: No significant ventral hernia. Abdominal Nodes: No retroperitoneal or mesenteric adenopathy by size criteria. Vessels: Aorta and inferior vena cava are normal in size. PELVIS: Pelvic Organs: Unremarkable. Bladder: No bladder wall thickening, accounting for underdistention. Pelvic Nodes: No enlarged lymph nodes. Miscellaneous: No inguinal hernias are seen. Bones: No aggressive osseous abnormality. IMPRESSION: 1. Significant soft tissue density in the gallbladder fossa which appears somewhat more prominent compared to prior study. This may present granulation tissue or phlegmon. Depending on the clinical course since the prior study, this could also represent tumor. 2. This extends to the hepatic hilum, probably causing biliary obstruction near the region of the hepatic duct confluence, with intrahepatic biliary dilatation. This can be further assessed with MRI with MRCP. 3. There is also possible associated thrombosis of the anterior segmental branch of the right portal vein, can also be further assessed on MRI given the superior soft tissue contrast. Dictated by: Mariano Thornton M.D. on 11/09/2024 at 19:52 Approved by: Mariano Thornton M.D. on 11/09/2024 at 20:02
[2024-11-09] MEDS: ALBUTEROL 2.5 MG/3 ML NEB (ADULT) INH (18:49)
[2024-11-09 18:50] LABS: Procalcitonin 0.209 ng/mL (<0.5)
[2024-11-09] MEDS: ACETAMINOPHEN 325 MG TABLET 975 MG PO (18:57)
[2024-11-09] MEDS: PIPERACILLIN/TAZO 4.5 GM in SODIUM CHLORIDE 0.9% 100 ML IV (19:14)
[2024-11-09 19:54] LABS: Reflexed Lactate in 2 Hours Y
[2024-11-09 20:35] LABS: Lactate 2HR (Lactic Acid Rflx) 2.6 mmol/L (0.7-2.1)
--- NOTE | 2024-11-09 22:24 | ED.GENADULT ---
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 No chest pain were specific abdominal pain. Related Data Home Medications ?Medication ?Instructions ?Recorded ?Confirmed atorvastatin 20 mg tablet 20 mg PO BEDTIME 05/25/20 04/19/22 meloxicam 15 mg tablet 20 mg PO DAILY PRN Pain 05/25/20 04/19/22 metoprolol tartrate 25 mg tablet 25 mg PO BID 05/25/20 04/19/22 omeprazole 20 mg tablet,delayed 20 mg PO BID 05/25/20 04/19/22 release rivaroxaban 20 mg tablet (Xarelto) 20 mg PO QPM 05/25/20 04/19/22 nystatin-triamcinolone 100,000 1 applic topical BID 05/26/20 04/19/22 unit/gram-0.1 % topical ointment losartan 50 mg tablet 50 mg PO DAILY 04/19/22 04/19/22 Previous Rx's ?Medication ?Instructions ?Recorded fentanyl 50 mcg/hr transdermal 50 mcg topical Q72H #5 ea 04/21/22 patch Allergies Allergy/AdvReac Type Severity Reaction Status Date / Time tramadol Allergy Unknown Doesn't Verified 11/09/24 18:00 recall dronedarone AdvReac Mild Diarrhea Verified 11/09/24 18:00 Review of Systems Review of Systems Narrative: Pertinent positive and negative findings as per HPI Patient History Medical History Gallstone pancreatitis Anticoagulated Arthritis Spinal stenosis Shortness of breath Obesity GERD (gastroesophageal reflux disease) Erectile dysfunction BPH (benign prostatic hyperplasia) Hyperlipidemia Chronic anticoagulation AVNRT (AV ciro re-entry tachycardia) Paroxysmal A-fib SVT (supraventricular tachycardia) Former smoker Atypical chest pain (~2014) Degenerative disc disease Obstructive sleep apnea on CPAP Impairment of balance Sinus congestion Elevated cholesterol Hypertension History of tachycardia Morbid obesity Lumbar strain Lumbar post-laminectomy syndrome Surgical History History of lumbar fusion S/P epidural steroid injection H/O nasal septoplasty (~2012) H/O right knee surgery S/P foot surgery, right Status post cataract extraction of both eyes with insertion of intraocular lens History of total knee arthroplasty History of appendectomy H/O cardiac radiofrequency ablation History of laminectomy Social History household members: spouse Smoking Status: Never smoker alcohol intake: current Smoking Status: Never smoker alcohol intake frequency: 0-2 drinks per day Exam Initial Vital Signs Initial Vital Signs: Vital Signs Pulse Rate 113 H 11/09/24 17:53 Pulse Oximetry 93 11/09/24 17:53 General: Chronically ill gentleman, tachypneic but able to speak in complete sentences productive cough HEENT: Moist mucous membranes, normal sclera with reactive pupils, Neck: No JVD, supple Respiratory: Lungs no significant wheeze, minor rhonchi in the right base seems to clear with cough, no significant rales Cardiac: Regular rate and rhythm no murmurs no bruits Abdomen: Soft, nontender, no rebound or guarding, no flank pain Skin: Warm and dry, no rashes Neurologic: Grossly neurologically intact with no obvious asymmetries or abnormalities Extremities: No trauma, no significant pitting edema Psych: Cooperative, appropriate insight and affect Course Orders Ordered: Discontinued Medications Acetaminophen (Acetaminophen 325 Mg Tablet) 975 mg PO NOW ONE Stop: 11/09/24 18:45 Last Admin: 11/09/24 18:57 Dose: 975 mg Documented By: DKJose Albuterol (Albuterol 2.5 Mg/3 Ml Neb (Adult)) 2.5 mg INH NOW ONE Stop: 11/09/24 18:45 Last Admin: 11/09/24 18:49 Dose: 2.5 mg Documented By: SAT Albuterol (Albuterol 2.5 Mg/3 Ml Neb (Adult)) 2.5 mg INH NOW ONE Stop: 11/09/24 18:46 Last Admin: 11/09/24 18:47 Dose: Not Given Documented By: SAT Sodium Chloride (Normal Saline 0.9%) 1,000 mls @ 1,000 mls/hr IV BOLUS ONE Stop: 11/09/24 19:04 Last Admin: 11/09/24 18:39 Dose: Not Given Documented By: DEJAN Piperacillin Sod/Tazobactam (Sod 4.5 gm/ Sodium Chloride) 100 mls @ 200 mls/hr IV STAT ONE Stop: 11/09/24 18:45 Last Infusion: 11/09/24 19:20 Dose: Infused Documented By: Admin: 11/09/24 19:14 Dose: 200 mls/hr Documented By: DEJAN Sodium Chloride (Normal Saline 0.9%) 1,000 mls @ 1,000 mls/hr IV BOLUS ONE Stop: 11/10/24 00:41 Last Infusion: 11/10/24 01:24 Dose: Infused Documented By: Admin: 11/10/24 00:00 Dose: 1,000 mls/hr Documented By: DEJAN Ondansetron HCl (Ondansetron 4 Mg/2 Ml Inj) 4 mg IV NOW PRN PRN Reason: Nausea And Vomiting Ondansetron HCl (Ondansetron 4 Mg Odt) 4 mg PO NOW PRN PRN Reason: Nausea And Vomiting Vital Signs Vital signs: Vital Signs - 8 hr 11/09/24 20:00 11/09/24 20:30 11/09/24 20:30 Temperature 100.0 F H Pulse Rate 99 H 97 H Respiratory Rate 30 H 27 H Blood Pressure Pulse Oximetry 93 93 Oxygen Delivery Method Oxygen Flow Rate 11/09/24 20:53 11/09/24 21:00 11/09/24 21:30 Temperature 100.0 F H Pulse Rate 92 H 85 Respiratory Rate 26 H 29 H Blood Pressure Pulse Oximetry 94 92 Oxygen Delivery Method Oxygen Flow Rate 11/09/24 22:00 11/09/24 22:30 11/09/24 22:55 Temperature Pulse Rate 81 79 79 Respiratory Rate 28 H 29 H 34 H Blood Pressure Pulse Oximetry 91 91 94 Oxygen Delivery Method Nasal Cannula Oxygen Flow Rate 2 11/09/24 22:55 11/09/24 23:00 11/09/24 23:00 Temperature Pulse Rate 77 Respiratory Rate 28 H Blood Pressure 116/58 L 114/56 L Pulse Oximetry 93 Oxygen Delivery Method Oxygen Flow Rate 11/09/24 23:30 11/09/24 23:30 11/10/24 00:00 Temperature Pulse Rate 75 78 Respiratory Rate 25 H 25 H Blood Pressure 110/64 Pulse Oximetry 95 96 Oxygen Delivery Method Oxygen Flow Rate 11/10/24 00:00 11/10/24 00:30 11/10/24 00:30 Temperature Pulse Rate 72 Respiratory Rate 20 Blood Pressure 117/63 121/61 Pulse Oximetry 97 Oxygen Delivery Method Oxygen Flow Rate 11/10/24 01:00 11/10/24 01:00 11/10/24 01:30 Temperature Pulse Rate 76 71 Respiratory Rate 27 H 27 H Blood Pressure 124/61 Pulse Oximetry 98 96 Oxygen Delivery Method Oxygen Flow Rate 11/10/24 01:30 11/10/24 02:00 11/10/24 02:00 Temperature Pulse Rate 69 Respiratory Rate 26 H Blood Pressure 133/61 128/64 Pulse Oximetry 97 Oxygen Delivery Method Oxygen Flow Rate 11/10/24 02:30 11/10/24 02:30 11/10/24 03:00 Temperature Pulse Rate 65 66 Respiratory Rate 25 H 24 Blood Pressure 127/66 Pulse Oximetry 96 96 Oxygen Delivery Method Oxygen Flow Rate 11/10/24 03:00 11/10/24 03:30 11/10/24 03:30 Temperature Pulse Rate 69 Respiratory Rate 25 H Blood Pressure 122/65 132/73 Pulse Oximetry 98 Oxygen Delivery Method Nasal Cannula Oxygen Flow Rate 2 11/10/24 03:43 Temperature 98 F Pulse Rate Respiratory Rate Blood Pressure Pulse Oximetry Oxygen Delivery Method Oxygen Flow Rate Medical Decision Making Lab Data 11/09/24 18:13 11/09/24 18:13 Labs: Lab Results 11/09/24 11/09/24 Range/Units 18:13 20:15 WBC 12.2 H (4.5-11.0) X10^3/uL RBC 4.38 L (4.5-5.9) X10^6/uL Hgb 12.5 L (13.5-17.5) g/dL Hct 37.8 L (41-53) % MCV 86.2 (80-100) fL MCH 28.5 (26-34) PG MCHC 33.1 (30-36) % RDW 15.0 H (11.6-14.8) % Plt Count 190 (150-400) X10^3/uL Neut % (Auto) 92.4 H (50-75) % Lymph % (Auto) 3.5 L (25-40) % [place] % (Auto) 3.3 (3-14) % Eos % (Auto) 0.6 L (2-4) % Baso % (Auto) 0.2 (0-2) % Neut # (Auto) 59912 H (4186-7416) /uL Lymph # (Auto) 400 L (2453-1543) /uL [place] # (Auto) 400 (0-900) /uL Eos # (Auto) 100 (0-450) /uL Baso # (Auto) 0 (0-100) /uL PT 15.2 H (9.4-12.5) SECONDS INR 1.3 (0.9-1.3) APTT 30 (25.1-36.5) SECONDS Sodium 133 L (137-145) mmol/L Potassium 4.4 (3.4-5.1) mmol/L Chloride 100 (98-107) mmol/L Carbon Dioxide 26 (22-32) mmol/L BUN 12 (9-20) mg/dL Creatinine 1.17 (0.66-1.25) mg/dL Estimated GFR > 60 (>60) mL/min BUN/Creatinine Ratio 10.3 (6-22) Glucose 174 H (70-99) mg/dL Lactate 2.4 H 2.6 H (0.7-2.1) mmol/L Calcium 8.7 (8.4-10.2) mg/dL Total Bilirubin 1.9 H (0.2-1.3) mg/dL AST 181 H (17-59) IU/L ALT 111 H (<50) IU/L Alkaline Phosphatase 1086 H (38-126) U/L Total Protein 6.6 (6.3-8.2) g/dL Albumin 3.4 L (3.5-5.0) g/dL Globulin 3.2 (1.7-4.1) g/dL Albumin/Globulin Ratio 1.1 (1.0-2.8) Lipase 55 (23-300) U/L Procalcitonin 0.209 (<0.5) ng/mL Point of Care Testing Test Results Not applicable Urine Dip Bedside Urine Glucose Negative Bedside Urine Bilirubin - Negative Bedside Urine Ketone - Negative Urine Specific [place] 1.020 Bedside Urine Occult Blood - Negative Bedside Urine pH 6.0 Bedside Urine Protein - Negative Bedside Urine Urobilinogen - Negative Bedside Urine Nitrite - Negative Bedside Urine Leukocytes - Negative Esterase Point of care testing: Point of Care Testing Test Results Not applicable Urine Dip Bedside Urine Glucose Negative Bedside Urine Bilirubin - Negative Bedside Urine Ketone - Negative Urine Specific [place] 1.020 Bedside Urine Occult Blood - Negative Bedside Urine pH 6.0 Bedside Urine Protein - Negative Bedside Urine Urobilinogen - Negative Bedside Urine Nitrite - Negative Bedside Urine Leukocytes - Negative Esterase Imaging Data CT scan - abdomen/pelvis: Radiologist's Impression: PROCEDURE: CT ABDOMEN PELVIS W CON INDICATIONS: sepsis, elevated LFTs TECHNIQUE: After the administration of intravenous contrast, axial sections acquired from the lung bases to the pubic symphysis. Coronal and sagittal reformats were performed. For radiation dose reduction, the following was used: automated exposure control, adjustment of mA and/or kV according to patient size. COMPARISON: [facility], CT, CT ABDOMEN PELVIS WITHOUT CONTRAST, 05/20/2022, 14:01. FINDINGS: Image quality: Diagnostic. Lower Chest: No significant findings. ABDOMEN: Liver: No solid mass. There is poor visualization of the anterior segmental branch of the right portal vein. Gallbladder: There is ill-defined soft tissue density in the gallbladder fossa measuring approximately 8 x 4.7 cm, with possible hyperdense component centrally. This extends into the hilum. Biliary ducts: There is probably moderate intrahepatic biliary dilatation. There is trace pneumobilia. Pancreas: No ductal dilation. Spleen: Size is within normal limits. Adrenal Glands: No adrenal nodules. Kidneys and Ureters: No hydronephrosis. No solid mass. No complex renal cystic lesion which requires follow up. Stomach and Bowel: Normal colonic caliber, without significant wall thickening. Peritoneum: No abnormal intraperitoneal fluid. No free air. Ventral Wall: No significant ventral hernia. Abdominal Nodes: No retroperitoneal or mesenteric adenopathy by size criteria. Vessels: Aorta and inferior vena cava are normal in size. PELVIS: Pelvic Organs: Unremarkable. Bladder: No bladder wall thickening, accounting for underdistention. Pelvic Nodes: No enlarged lymph nodes. Miscellaneous: No inguinal hernias are seen. Bones: No aggressive osseous abnormality. IMPRESSION: 1. Significant soft tissue density in the gallbladder fossa which appears somewhat more prominent compared to prior study. This may present granulation tissue or phlegmon. Depending on the clinical course since the prior study, this could also represent tumor. 2. This extends to the hepatic hilum, probably causing biliary obstruction near the region of the hepatic duct confluence, with intrahepatic biliary dilatation. This can be further assessed with MRI with MRCP. 3. There is also possible associated thrombosis of the anterior segmental branch of the right portal vein, can also be further assessed on MRI given the superior soft tissue contrast. Dictated by: Mariano Thornton M.D. on 11/09/2024 at 19:52 MDM Narrative Medical decision making narrative: CC: Fevers and chills Complicating co-morbidities: Productive cough, anticoagulation, complaints of upper respiratory symptoms for almost 6 weeks now Data collected from: patient Medical records reviewed: Discharge summary from March of 2022 reviewed, complicated cholecystitis medical management with stent placement and eventual plan for outpatient cholecystectomy Differential considered: Pneumonia, viral syndrome, intra-abdominal abscess, urinary tract infection Exam documented above, pertinent findings include: Exam is notable for his tachypnea however pulmonary findings are minimal. No pain on abdominal exam. Exam is repeated after labs return and still no pain or tenderness Lab Test results independently reviewed as above. Pertinent findings: CBC shows leukocytosis with white count at 12.2, significant left shift 92%. Chemistries show glucose minimally elevated at 174, bilirubin AST ALT and alk-phos are all elevated. Initial lactate is 2.4. Despite appropriate initial treatment, lactate is increases to 2.6 Independently reviewed EKG: Sinus rhythm at a rate of 93. No acute ischemic changes Imaging studies independently reviewed: Chest x-ray 2 independent review suggest possibility of developing right lower lobe pneumonia. Radiology interprets this is no acute cardiopulmonary abnormality seen Consultations: Discussed with [facility], beds may be available, will discuss with Gastroenterology Bed available at [facility]. Discussed with Hospitalist, Dr Contreras and DR Santana, general surgery Treatments: Patient is given fluids, Zosyn, Tylenol, Zofran Re-evaluations: 1030pm remains in sinus rhythm now a rate of 85 after fever has been controlled. Blood pressure currently 142/64, tachypnea slightly decreased, temperature is down to 100, he remains 92% on room air. Still with no abdominal pain on palpation. Reviewed CT scan results concern for gallbladder abnormalities, need for MRCP and anticipated transfer. Discussion: Concern for rigors and chills, abnormal liver studies with increasing lactic acid despite a L of fluid and antibiotics including Zosyn. Possibility of ascending cholangitis versus complicated cholecystitis versus obstructing mass. We will need GI and likely surgical consultation and probably MRCP/ERCP as well. Patient has been accepted at [facility]. Concern for significant gallbladder abnormality and whether that is infection, mass, tumor or something beyond that is obstructing and causing biliary obstruction without any pancreatic obstruction. Possibility of ascending cholangitis, sepsis, cholecystitis are all entertained. He is started on Zosyn. Findings, concerns including gradually decreasing blood pressure with increasing lactic acid are reviewed with the hospitalist. Findings reviewed with the patient along with explanation of bed shortage is/availability and reasons for transfer down to [place]. He is stable at time of transfer Additional Information: Severe Sepsis Criteria [ x ] bacterial source of infection suspected and documented [ x ] 2 SIRS Criteria met [x ] HR >90 [ x ] RR >20 [ x ] fever or hypothermia [ x] leukocytosis/leukopenia/bandemia [ ] Evidence of at least 1 organ system dysfunction [ x ] Lactate > 2 [ ] BP < 90 or MAP <65, >40mm decrease from normal baseline [ ] Creat > 2.0 [ ] T. Bili > 2.0 [ ] platelet count < 100k [ ] altered mental status [ ] mechanical ventilation [ ] provider documentation of severe sepsis Severe Sepsis Determination. the patient has been screened and [ ] DOES meet criteria for severe sepsis [ x ] DOES NOT meet criteria for severe sepsis Goal directed treatment Within 3 hours [ x ] blood cx drawn prior to abx [ x] broad spectrum abx started [ x] lactic acid level checked [ ] lactic redrawn within 6 hours if >2.0 Septic Shock Criteria [ ] lactic > 4 at any time [ ] SBP ,90 or MAP , 65 [ ] documentation of septic shock Time Septic Shock diagnosed: [ ] Septic Shock Determination. the patient has been screened and [ ] DOES meet criteria for septic shock [ x ] DOES NOT meet criteria for septic shock Goal directed therapy within 3 hours of septic shock or initial hypotension [ ] 30ml/kg fluid [ ] ABW used [ ] IBW (33.6) used due to BMI > 30 [ ] patient or advocate declining fluid administration after shared decision making conversation Clinical reason for NOT initiating fluid bolus: Within 6 hours (if continued hypotension after fluids or initial lactate >4) [ ] repeat volume status and tissue perfusion assessment documented after fluid bolus was completed at [Date/Time] Must include vital signs, cardiopulmonary exam, capillary refill, peripheral pulse evaluation, skin exam [ ] Initiate vasopressor therapy if persistent hypotension after adequate fluid bolus Discharge Plan Departure Patient Disposition: [facility] Clinical Impression: SIRS (systemic inflammatory response syndrome), Abnormal computed tomography of gallbladder with contrast, Intrahepatic bile duct dilation Prescriptions: No Action atorvastatin 20 mg Tablet 20 mg PO BEDTIME meloxicam 15 mg Tablet 20 mg PO DAILY PRN (Reason: Pain) metoprolol tartrate 25 mg Tablet 25 mg PO BID omeprazole 20 mg Tablet,Delayed Release (Dr/Ec) 20 mg PO BID Xarelto 20 mg Tablet 20 mg PO QPM nystatin-triamcinolone 100,000-0.1 unit/gram-% Ointment 1 applic TOPICAL BID Rx Instructions: To affected areas losartan 50 mg tablet 50 mg PO DAILY fentanyl 50 mcg/hr Patch 72 Hour 50 mcg topical Q72H Qty: 5 0RF Referrals: Blaze Hurley MD [Primary Care Provider, Internal Medicine] Stand Alone Forms: Patient Portal/API
--- NOTE | 2024-11-09 23:12 | PC.NURSE ---
Pt has dx of sleep apnea uses home cpap, placed on o2 at 2l NC at this time. pt attempting to get some sleep, O2 dips to 87-88%.
[2024-11-10] VITALS (9 sets, daily range): BP systolic 117–133; BP diastolic 61–73; PULSE 65–78; RESP 20–27; TEMP 36.6; O2SAT 96–98
[2024-11-10] MEDS: SODIUM CHLORIDE 0.9% 1,000 ML 1000 ML IV
== END 2024-11-10 03:49 | disposition short-term general hospital (02) ==
PROVIDERS: Emergency Provider Emergency Medicine; PCP Internal Medicine
DX: R65.10 Systemic inflammatory response syndrome (SIRS) of non-infectious origin without acute organ dysfunction (principal); K83.8 Other specified diseases of biliary tract; R93.2 Abnormal findings on diagnostic imaging of liver and biliary tract; R50.9 Fever, unspecified
CPT/HCPCS: 36415; 71045; 74177; 80053; 81003; 81025; 83605; 83690; 84145; 85025; 85610; 85730; 87040; 93005; 96361; 96374; 99285; J2543; J7613; Q9967